=== PATIENT | female | born 1960 | race African-American/Black ===

== ENCOUNTER → 2016-05-13 | Outpatient (CLI) | payer BC ==
[~2016-05-13] MED LIST: AMLO5TAB4; ASPI-650; HYDR12.58 PO; PANT40TA3
[2016-05-13 12:05] LABS: ALBUMIN 4.6 g/dl (3.3-4.9)
[2016-05-13 12:08] LABS: BILIRUBIN,INDIRECT 0.5 mg/dl (0-1.1); BILIRUBIN,TOTAL 0.5 mg/dl (0.2-1.3); TOTAL PROTEIN 7.5 g/dl (6.1-8.1)
[2016-05-13 12:09] LABS: CHOL/HDL RATIO 2.1 RATIO
== END | disposition home or self-care (01) ==
LOC: LAB 10:16
PROVIDERS: ATTEND Internal Medicine Cardiovascular Disease
DX: E78.5 Hyperlipidemia, unspecified (principal)
CPT/HCPCS: 80061; 80076

== ENCOUNTER → 2016-05-13 | Outpatient (CLI) | END | disposition home or self-care (01) | DX: M15.0 Primary generalized (osteo)arthritis (principal); R76.0 Raised antibody titer; M79.7 Fibromyalgia ==

== ENCOUNTER → 2016-05-26 | Outpatient (CLI) | payer BC ==
--- NOTE | 2016-05-26 20:22 | RADRPT ---
Echocardiogram Report Patient Name: CARRIE PALOMINO Gender: Female Date: 1960 Study Date: 26-May-2016 Rn Interventional: [facility] Location: [facility] Ref. Physician: Santos MCKENZIE Quality: Good Procedures: Transthoracic echocardiogram with complete 2D, M-Mode, and doppler examination. Indications: Hypertension. 2D/M Mode Doppler Measurement Value Normal Ranges Measurement Value Normal Ranges LVIDd 2D 4.2 3.5 - 5.6 cm AV Peak [place]w 1.0 m/sec LVIDs 2D 2.8 2.1 - 4.1 cm AV Peak PG 4.0 mmHg FS 2D 33.2 % LVOT Peak Get[place]w 0.8 m/sec LVPWd 2D 1.0 0.6 - 1.1 cm LVOT Peak PG 2.0 mmHg IVSd 2D 0.8 0.6 - 1.1 cm MV E Peak Get[place]w 0.9 m/sec IVS/LVPW 2D 0.9 MV A Peak Get[place]w 0.5 m/sec AoR Diam 2D 2.1 2.0 - 3.7 cm MV E/A 1.8 LA/Ao 2D 1 0 - 1 MV Decel Time 232 msec EDV 2D 75.2 cm3 MV E/A 1.8 ESV 2D 22.4 cm3 LA Dimen 2D 2.8 2.3 - 4.0 cm Findings Left Ventricle: Normal left ventricular systolic function. Normal left ventricular cavity size. Left ventricular wall thickness upper limits of normal. Ejection fraction is visually estimated at 5560 %. Right Ventricle: Normal right ventricular size. Normal right ventricular systolic function. Left Atrium: The left atrium is normal in size. Right Atrium: The right atrium is normal in size. Mitral Valve: Mild mitral leaflet calcification. Mild mitral annular calcification. Mild mitral valve regurgitation. Aortic Valve: Trileaflet aortic valve. Trace aortic valve regurgitation. Tricuspid Valve: Tricuspid valve not well visualized. There is trace tricuspid regurgitation. Pulmonic Valve: Pulmonic valve not well visualized. There is trace pulmonic regurgitation. Pericardium: Normal pericardium with no significant pericardial effusion. Aorta: Normal aortic root. IVC: Dilated IVC with respiratory collapse consistent with elevated right atrial pressure. Conclusions 1.Normal left ventricular systolic function. Normal left ventricular cavity size. Left ventricular wall thickness upper limits of normal. Ejection fraction is visually estimated at 55-60 %. 2.Mild mitral leaflet calcification. Mild mitral annular calcification. Mild mitral valve regurgitation. 3.Trileaflet aortic valve. Trace aortic valve regurgitation. 4.Tricuspid valve not well visualized. There is trace tricuspid regurgitation. 5.Pulmonic valve not well visualized. There is trace pulmonic regurgitation. Electronically Signed By: Dutsy Salguero 26-May-2016 20:21:46 -0800 Patient Name: CARRIE PALOMINO Study Date: 26-May-2016 [id number]
== END | disposition home or self-care (01) ==
LOC: EKG 09:16
PROVIDERS: ATTEND Internal Medicine Cardiovascular Disease
DX: I10 Essential (primary) hypertension (principal); M06.9 Rheumatoid arthritis, unspecified; E78.5 Hyperlipidemia, unspecified
CPT/HCPCS: 93306

== ENCOUNTER → 2016-08-14 | Outpatient (CLI) | payer BC ==
[2016-08-14 09:36] LABS: ADD SCAN DIFF NO
[2016-08-14 09:48] LABS: BASOPHILS % 1.5 % (0.0-2.0); EOSINOPHILS # 0.1 10^3/ul (0.0-0.5); EOSINOPHILS % 3.4 % (0.0-7.0); HEMATOCRIT 40.5 % (37.0-47.0); HEMOGLOBIN 13.7 g/dl (12.0-16.0); LYMPHOCYTES # 0.8 10^3/ul (0.8-2.9); LYMPHOCYTES % 30.6 % (15.0-51.0); MEAN CORPUSCULAR HEMOGLOBIN 27.7 pg (29.0-33.0); MEAN CORPUSCULAR HGB CONC 33.8 g/dl (32.0-37.0); MEAN CORPUSCULAR VOLUME 81.8 fl (82.0-101.0); MEAN PLATELET VOLUME 10.8 fl (7.4-10.4); MONOCYTE # 0.3 10^3/ul (0.3-0.9); MONOCYTES % 10.2 % (0.0-11.0); NEUTROPHIL # 1.4 10^3/ul (1.6-7.5); NEUTROPHILS % 53.9 % (39.0-77.0); PLATELET COUNT 208 10^3/UL (140-415); RED BLOOD COUNT 4.95 10^6/ul (4.20-5.40); RED CELL DISTRIBUTION WIDTH 14.3 % (11.5-14.5); WHITE BLOOD COUNT 2.7 10^3/ul (4.8-10.8)
[2016-08-14 10:01] LABS: CREATININE 1.04 mg/dl (0.44-1.00)
[2016-08-15 01:16] LABS: PROTEIN, TOTAL 7.1 g/dL (6.1-8.1)
[2016-08-15 19:05] LABS: CYCLIC CITRULLINATED PEP IGG <16 UNITS
[2016-08-15 19:46] LABS: ALBUMIN 4.4 g/dL (3.8-4.8)
[2016-08-18 08:17] LABS: ANA SCREEN POSITIVE (NEGATIVE)
[2016-08-18 09:35] LABS: ANA TITER 1:40 titer
== END | disposition home or self-care (01) ==
LOC: LAB 09:07
PROVIDERS: ATTEND Internal Medicine Rheumatology
DX: M25.40 Effusion, unspecified joint (principal); M79.1 Myalgia
CPT/HCPCS: 82550; 82565; 84075; 84155; 84165; 84450; 84460; 84520; 85025; 85651; 86038; 86140; 86200

== ENCOUNTER → 2016-11-10 | Outpatient (CLI) | payer BC ==
[~2016-11-10] MED LIST changes: +AMLO2.5T2; +NO HOME MEDS
[2016-11-10 13:04] LABS: BASOPHIL # 0.1 10^3/ul (0.0-0.1); BASOPHILS % 1.6 % (0.0-2.0); EOSINOPHILS # 0.1 10^3/ul (0.0-0.5); EOSINOPHILS % 2.6 % (0.0-7.0); HEMATOCRIT 39.2 % (37.0-47.0); HEMOGLOBIN 13.5 g/dl (12.0-16.0); LYMPHOCYTES % 33.3 % (15.0-51.0); MEAN CORPUSCULAR HEMOGLOBIN 27.7 pg (29.0-33.0); MEAN CORPUSCULAR HGB CONC 34.4 g/dl (32.0-37.0); MEAN CORPUSCULAR VOLUME 80.3 fl (82.0-101.0); MEAN PLATELET VOLUME 10.7 fl (7.4-10.4); MONOCYTE # 0.4 10^3/ul (0.3-0.9); MONOCYTES % 12.1 % (0.0-11.0); NEUTROPHILS % 50.4 % (39.0-77.0); PLATELET COUNT 187 10^3/UL (140-415); RED BLOOD COUNT 4.88 10^6/ul (4.20-5.40); RED CELL DISTRIBUTION WIDTH 14.2 % (11.5-14.5); WHITE BLOOD COUNT 3.1 10^3/ul (4.8-10.8)
[2016-11-10 13:24] LABS: ALANINE AMINOTRANSFERASE 43 IU/L (13-69); ALKALINE PHOSPHATASE 71 IU/L (42-121); ASPARTATE AMINO TRANSFERASE 32 IU/L (15-46); BLOOD UREA NITROGEN 20 mg/dl (7-20); CARBON DIOXIDE 29 mmol/L (21-31); CHLORIDE 103 mmol/L (97-110); CREATINE KINASE 467 IU/L (23-200); CREATININE 1.09 mg/dl (0.44-1.00); LACTATE DEHYDROGENASE 628 IU/L (313-618); SODIUM 140 mmol/L (135-144); URIC ACID 5.2 mg/dl (3.1-7.9)
[2016-11-10 13:49] LABS: C-REACTIVE PROTEIN < 0.5 mg/dl (0.0-0.9)
[2016-11-10 14:41] LABS: THYROID STIMULATING HORMONE 0.682 MIU/L (0.465-4.680)
== END | disposition home or self-care (01) ==
LOC: LAB 11:52
PROVIDERS: ATTEND Internal Medicine Rheumatology
DX: M25.50 Pain in unspecified joint (principal); M25.40 Effusion, unspecified joint
CPT/HCPCS: 82085; 82374; 82435; 82550; 82565; 83615; 84075; 84132; 84295; 84443; 84450; 84460; 84520; 84560; 85025; 85651; 86140

== ENCOUNTER → 2017-02-04 | Outpatient (CLI) | payer BC ==
[~2017-02-04] MED LIST changes: -AMLO2.5T2; -NO HOME MEDS
[2017-02-04 10:30] LABS: BASOPHILS % 1.4 % (0.0-2.0); EOSINOPHILS # 0.1 10^3/ul (0.0-0.5); EOSINOPHILS % 2.1 % (0.0-7.0); HEMATOCRIT 38.8 % (37.0-47.0); HEMOGLOBIN 13.1 g/dl (12.0-16.0); LYMPHOCYTES # 0.9 10^3/ul (0.8-2.9); LYMPHOCYTES % 30.9 % (15.0-51.0); MEAN CORPUSCULAR HEMOGLOBIN 27.6 pg (29.0-33.0); MEAN CORPUSCULAR HGB CONC 33.8 g/dl (32.0-37.0); MEAN CORPUSCULAR VOLUME 81.7 fl (82.0-101.0); MEAN PLATELET VOLUME 10.6 fl (7.4-10.4); MONOCYTE # 0.3 10^3/ul (0.3-0.9); MONOCYTES % 10.3 % (0.0-11.0); NEUTROPHIL # 1.6 10^3/ul (1.6-7.5); NEUTROPHILS % 55.3 % (39.0-77.0); PLATELET COUNT 205 10^3/UL (140-415); RED BLOOD COUNT 4.75 10^6/ul (4.20-5.40); RED CELL DISTRIBUTION WIDTH 13.8 % (11.5-14.5); WHITE BLOOD COUNT 2.8 10^3/ul (4.8-10.8)
== END | disposition home or self-care (01) ==
LOC: LAB 09:29
PROVIDERS: ATTEND Internal Medicine Rheumatology
DX: M25.40 Effusion, unspecified joint (principal); M25.50 Pain in unspecified joint
CPT/HCPCS: 80197; 85025; 85651

== ENCOUNTER → 2017-02-04 | Outpatient (CLI) | payer BC ==
[2017-02-04 10:55] LABS: ALBUMIN 4.3 g/dl (3.3-4.9); ALBUMIN/GLOBULIN RATIO 1.38; BILIRUBIN,INDIRECT 0.3 mg/dl (0-1.1); BILIRUBIN,TOTAL 0.3 mg/dl (0.2-1.3); CALCIUM 9.7 mg/dl (8.4-10.2); CREATININE 1.11 mg/dl (0.44-1.00); POTASSIUM 4.3 mmol/L (3.5-5.1); TOTAL PROTEIN 7.4 g/dl (6.1-8.1)
--- NOTE | 2017-02-05 14:32 | RADRPT ---
PROCEDURE: US Abdomen and Retroperitoneum. CLINICAL INDICATION: Abdominal pain. TECHNIQUE: Multiple real-time longitudinal and transverse images were acquired of the patient's ab domen and retroperitoneum utilizing a curved array transducer. COMPARISON: No prior studies are available for comparison. FINDINGS: The liver is normal in size and normal in echogenicity. The liver has a normal smooth surface. Ther e is no focal hepatic lesion. Color Doppler and pulsed Doppler sonography demonstrate normal antegra de flow in the portal vein. The gallbladder is surgically absent. The bile ducts are normal with the common bile duct measuring 5.6 mm in diameter. The spleen is normal in size. There is no focal splenic lesion. The pancreas is partially seen and is unremarkable. There is no free fluid. The right kidney measures 12.0 x 5.3 x 6.9 cm and the left kidney measures 10.6 x 5.7 x 6.2 cm. There is no solid renal mass. There is a benign cyst in the mid right kidney measuring 1.7 cm. There is no hydronephrosis or calculus. The abdominal aorta is not dilated. The inferior vena cava is unremarkable. IMPRESSION: 1. Status post cholecystectomy. 2. Benign right renal cyst measuring 1.7 cm. 3. Otherwise unremarkable abdomen and retroperitoneum ultrasound. RPTAT: QQ .Carl Garcia MD, MD Date Time Electronically viewed and signed by .Carl Garcia MD, on 02/05/2017 14:32 .R/
== END | disposition home or self-care (01) ==
LOC: U/S 09:34
PROVIDERS: ATTEND Internal Medicine Gastroenterology
DX: R10.9 Unspecified abdominal pain (principal)
CPT/HCPCS: 76700; 80053

== ENCOUNTER 2017-02-26 05:40 | Day surgery (SDC) | payer BC ==
[~2017-02-26] VITALS: Ht 160 cm; Wt 82.5 kg
[2017-02-26 06:44] VITALS: Ht 160 cm; Wt 82.5 kg
[2017-02-26 07:06] VITALS: BP 128/90; PULSE 72; RESP 18
[2017-02-26] MEDS ORDERED: MIDAZOLAM 1 MG/ML 2 ML INJ ONE (07:40)
[2017-02-26] MEDS ORDERED: FENTAnyl 50 MCG/ML VIAL ONE (07:40)
--- NOTE | 2017-02-26 07:45 | OPPN ---
Date/Time of Note Date/Time of Note DATE: 02/26/17 TIME: 07:44 Operative Report Preoperative Diagnosis Gastroesophageal reflux disease and dysphagia Postoperative Diagnosis Hiatal hernia and gastroesophageal reflux disease Gastritis with erosions Operation/Procedure Performed Esophagogastroduodenoscopy and biopsy Surgeon see signature line nursing assistants teacher None Anesthesia: moderate sedation Estimated blood loss: none Transfusion Required none Specimen Gastric mucosal biopsy Grafts/Implants none Complications none AL VENCES MD Feb 26, 2017 07:45
[2017-02-26 08:08] VITALS: BP 132/78; PULSE 71; RESP 12
--- NOTE | 2017-02-26 12:33 | GILP ---
DATE OF PROCEDURE: NAME OF PROCEDURES: Esophagogastroduodenoscopy and biopsy. SURGEON: Marshall Lucero MD. PREOPERATIVE DIAGNOSES: 1. Chronic heartburn. 2. Dysphagia. POSTOPERATIVE DIAGNOSES: 1. Hiatal hernia. 2. Gastroesophageal reflux disease. 3. Gastritis with erosions. 4. Gastric mucosal biopsies were taken for Helicobacter pylori test. INDICATION FOR THE PROCEDURE: Ms. Ruba Zamora is a 56-year-old female patient who had telephone ad taker noe heartburn and dysphagia. The patient was scheduled for endoscopic examination for further evalu ation. The procedure and possible complications were well explained to the patient. The patient understood and consented to the procedure. DESCRIPTION OF PROCEDURE: Under the influence of fentanyl and Versed, the gastroscope was carefully introduced into the esophagus and under direct vision, it was advanced to the stomach and through t he pylorus into the duodenal bulb and descending duodenum. FINDINGS: ESOPHAGUS: The patient had hiatal hernia and gastroesophageal reflux disease. There was no neoplas m or stricture. STOMACH: The patient had gastritis with erosions. Gastric mucosal biopsies were taken for H. pylor i test. DUODENUM: Normal. The patient tolerated the procedure very well and there was no complication from the procedure. At the end of the procedure, she was awake with stable vital signs and she was discharged home to the [facility] of her family. IMPRESSION: Please see postoperative diagnoses. PLAN: 1. Nexium 40 mg p.o. q.a.m. 2. Await H. pylori test report. Dictated By: MARSHALL HUTTON/CONCHA Conf#: [id number] DID#: [id number]
--- NOTE | 2017-02-27 10:48 | CONS ---
DATE OF ADMISSION: 02/26/2017 DATE OF CONSULTATION: PREOPERATIVE GASTROINTESTINAL CONSULTATION HISTORY OF PRESENT ILLNESS: Ms. Ruba Díaz is a 56-year-old female patient who has been re ferred to me for further evaluation of chronic heartburn with dysphagia. No past history of esophag eal stricture. She has been taking nonsteroidal anti-inflammatory agents for arthritis. She also c omplains of pain on the right side of the abdomen. She is status post a cholecystectomy. She does not have any fever, chills or jaundice. No history of liver disease. The patient denies any change in the bowel habit or rectal bleeding. She had screening colonoscopy 4 years ago and no colon neop lasm was identified. She is hypertensive. Not a diabetic. No heart disease or lung problem. No k idney disease. She has hyperlipidemia. She has rheumatoid arthritis. She is status post cholecyst ectomy and hysterectomy. Nonsmoker. No alcohol abuse. The patient's father had gastric cancer. ALLERGIES: SHE IS ALLERGIC TO: 1. DEMEROL. 2. CODEINE. 3. ERYTHROMYCIN. 4. MACROBID. 5. BETADINE. PHYSICAL EXAMINATION: GENERAL: She is 5 feet 3 inches tall and weighs 180 pounds. HEART: Normal heart sounds. LUNGS: Clear. ABDOMEN: Soft, no masses. No focal tenderness. Normal bowel sounds. NEUROLOGIC: Normal exam. MEDICATIONS: 1. Amlodipine. 2. Hydrochlorothiazide. 3. Atorvastatin. 4. Hydroxychloroquine. 5. Celebrex. 6. Aspirin 81 mg. IMPRESSION: 1. Gastroesophageal reflux disease with dysphagia. 2. The patient had a screening colonoscopy 4 years ago and no colon neoplasm was identified. 3. Right-sided abdominal pain. 4. Status post cholecystectomy. 5. Hypertension. 6. Hyperlipidemia. 7. Rheumatoid arthritis. 8. Status post hysterectomy. 9. The patient's father had stomach cancer. 10. HISTORY OF ALLERGY TO DEMEROL, CODEINE, ERYTHROMYCIN, MACROBID AND BETADINE. PLAN: 1. Endoscopic examination for further evaluation of dysphagia and gastroesophageal reflux disease. 2. CBC, CMP and abdominal ultrasound for further evaluation of abdominal pain. The procedure and possible complications were well explained to the patient. She understands and co nsents to the procedure. I thank you once again. With warmest personal regards, Dictated By: AL HUTTON/CONCHA Conf#: [id number] [facility]#: [id number]
== END 2017-02-26 10:23 | disposition home or self-care (01) ==
LOC: GIL 05:40
PROVIDERS: ATTEND Internal Medicine Gastroenterology
DX: K44.9 Diaphragmatic hernia without obstruction or gangrene (principal); K21.9 Gastro-esophageal reflux disease without esophagitis; K29.70 Gastritis, unspecified, without bleeding; I10 Essential (primary) hypertension; E78.5 Hyperlipidemia, unspecified; M06.9 Rheumatoid arthritis, unspecified
CPT/HCPCS: 43239; J2250; J3010

== ENCOUNTER → 2017-03-26 | Outpatient (CLI) | END | disposition home or self-care (01) ==

== ENCOUNTER → 2017-04-21 | Outpatient (CLI) | END | disposition home or self-care (01) ==

== ENCOUNTER → 2017-06-08 | Outpatient (CLI) | END | disposition home or self-care (01) ==

== ENCOUNTER → 2017-06-08 | Outpatient (CLI) | END | disposition home or self-care (01) ==

== ENCOUNTER → 2017-10-11 | Outpatient (CLI) | END | disposition home or self-care (01) ==

== ENCOUNTER → 2017-10-11 | Outpatient (CLI) | END | disposition home or self-care (01) ==

== ENCOUNTER → 2017-12-20 | Outpatient (CLI) | END | disposition home or self-care (01) ==

== ENCOUNTER → 2018-07-12 | Outpatient (CLI) | payer BC ==
[~2018-07-12] MED LIST changes: -PANT40TA3
== END | disposition home or self-care (01) ==
LOC: LAB 09:36
PROVIDERS: ATTEND Internal Medicine
DX: E78.5 Hyperlipidemia, unspecified (principal); E03.9 Hypothyroidism, unspecified; R73.03 Prediabetes
CPT/HCPCS: 80053; 80061; 83036; 84436; 84443; 85025

== ENCOUNTER → 2018-07-12 | Outpatient (CLI) | payer BC | END | disposition home or self-care (01) | LOC: LAB 09:43 | PROVIDERS: ATTEND Internal Medicine Rheumatology | DX: M25.40 Effusion, unspecified joint (principal); M79.10 Myalgia, unspecified site | CPT/HCPCS: 82607; 82746; 85651 ==

== ENCOUNTER 2018-07-28 11:52 | Emergency (ER) | payer BC ==
[~2018-07-28] VITALS: Ht 170.2 cm; Wt 72.8 kg
[2018-07-28 12:00] VITALS: Ht 170.2 cm; Wt 72.8 kg
--- NOTE | 2018-07-28 13:02 | ERD ---
ER Documentation Chief Complaint Chief Complaint Pt with intermittent CP that radiates to the R shoulder HPI This is a 58-year-old female with past medical history of hypertension and fibromyalgia. The patient indicates that yesterday evening roughly 12 hours prior to arrival she developed pain in the right side of her jaw that radiated to the right side of her chest. She stated she felt cold and nauseous. She stated the pain progressively worsened and became a pleuritic chest pain that now radiated to the left side of her chest. There is no radiation to the left arm. The pain also radiated to the back. She has had sick contacts that she works at [employer]. She has no family history of coronary ar stephanie disease in first-degree relatives. She does not smoke tobacco. She takes aspirin on a daily basis. Her primary care physician is Dr. Gannon. She has seen the credit verification clerk Dr. Coulter in the past. ROS All systems reviewed and are negative except as per history of present illness. Medications Home Meds Active Scripts Amoxicillin/Potassium Clav (Amox-Clav 875-125 mg Tablet) 875-125 mg Tab, 1 TAB PO BID for 10 Days, #20 TAB Prov:VISH OLSEN MD 07/28/18 Reported Medications Hydrochlorothiazide* (Hydrochlorothiazide*) 12.5 Mg Tablet, 12.5 MG PO DAILY, TAB 01/09/14 Aspirin (Aspirin) 81 Mg Tablet 06/17/12 Amlodipine Besylate* (Norvasc*) 5 Mg Tablet 06/17/12 Allergies Allergies: Coded Allergies: codeine (Verified Allergy, Mild, 02/26/17) erythromycin base (Verified Allergy, Mild, 02/26/17) meperidine (Verified Allergy, Mild, 02/26/17) povidone-iodine (Verified Allergy, Mild, 02/26/17) Nitrofurantoin Macrocrystal (Verified Allergy, Unknown, 02/26/17) Soap (Verified Allergy, Unknown, 02/26/17) meperidine HCl (Verified Allergy, Unknown, 02/26/17) nitrofurantoin (Verified Allergy, Unknown, 02/26/17) PMhx/Soc History of Surgery: Yes (lamin, lap choley, r knee opa) Anesthesia Reaction: Yes (n/v) Hx Neurological Disorder: No Hx Respiratory Disorders: No Hx Cardiac Disorders: Yes (htn, high chol) Hx Psychiatric Problems: No Hx Miscellaneous Medical Probl: No Hx Alcohol Use: Yes (rarely) Hx Substance Use: No Hx Tobacco Use: Yes (quit 1988) Smoking Status: Former smoker Physical Exam Vitals Vital Signs Date Temp Pulse Resp B/P (MAP) Pulse Ox O2 O2 Flow FiO2 Time Delivery Rate 07/28/18 80 15 120/88 99 Room Air 13:58 (99) 07/28/18 98.0 104 20 151/83 99 12:00 (105) Physical Exam Constitutional:Well-developed. Well-nourished. HEENT:Normocephalic. Atraumatic.Pupils were equal round reactive to light. Moist mucous membranes.No tonsillar exudates. Neck: No nuchal rigidity. No lymphadenopathy. No posterior cervical spine tenderness or step-offs. Respiratory: Not using accessory muscles of respiration.Lungs were clear to auscultation bilaterally. No rhonchi. No rales. No wheezing. Cardiovascular: Regular rate regular rhythm.No murmurs. No rubs were ap preciated.S1, S2 normal. Distal pulses are palpable 2+ bilaterally. GI: Abdomen was soft. Nontender. Non Distended. No pulsatile abdominal masses or bruits. No rebound. No guarding. Bowel sounds were present and normal. Muscle skeletal: Full range of motion of both the upper and lower extremities b ilaterally.Normal muscle tone.No assymetrical calf tenderness or swelling. Skin: No petechia, no purpura. No lesions on the palms or the soles of the feet. No maculopapular rash. NEURO: Patient was alert, awake, orientated x3.No facial droop. Gait observed and normal with no ataxia.Speech had regular rate and rhythm. No focal neurological deficits. Result Diagram: 07/28/18 1234 07/28/18 1234 Results 24 hrs Laboratory Tests Test 07/28/18 12:34 07/28/18 15:30 White Blood Count 5.7 10^3/ul Red Blood Count 4.77 10^6/ul Hemoglobin 13.0 g/dl Hematocrit 38.3 % Mean Corpuscular Volume 80.3 fl Mean Corpuscular Hemoglobin 27.3 pg Mean Corpuscular Hemoglobin Concent 33.9 g/dl Red Cell Distribution Width 14.4 % Platelet Count 218 10^3/UL Mean Platelet Volume 10.5 fl Immature Granulocytes % 0.200 % Neutrophils % 69.1 % Lymphocytes % 17.8 % Monocytes % 11.1 % Eosinophils % 1.1 % Basophils % 0.7 % Nucleated Red Blood Cells % 0.0 /100WBC Immature Granulocytes # 0.010 10^3/ul Neutrophils # 3.9 10^3/ul Lymphocytes # 1.0 10^3/ul Monocytes # 0.6 10^3/ul Eosinophils # 0.1 10^3/ul Basophils # 0.0 10^3/ul Nucleated Red Blood Cells # 0.0 10^3/ul Prothrombin Time 14.0 Sec Prothrombin Time Ratio 1.1 INR International Normalized Ratio 1.07 Activated Partial Thromboplast Time 25.9 Sec Sodium Level 143 mmol/L Potassium Level 4.1 mmol/L Chloride Level 105 mmol/L Carbon Dioxide Level 31 mmol/L Anion Gap 7 Blood Urea Nitrogen 14 mg/dl Creatinine 1.01 mg/dl Est Glomerular Filtrat Rate mL/min > 60 mL/min Glucose Level 90 mg/dl Calcium Level 10.4 mg/dl Total Bilirubin 0.7 mg/dl Direct Bilirubin 0.00 mg/dl Indirect Bilirubin 0.7 mg/dl Aspartate Amino Transf (AST/SGOT) 23 IU/L Alanine Aminotransferase (ALT/SGPT) 30 IU/L Alkaline Phosphatase 62 IU/L Creatine Kinase 188 IU/L Creatine Kinase Index 0.8 Creatinine Kinase MB (Mass) 1.59 ng/ml Troponin I < 0.012 ng/ml B-Type Natriuretic Peptide 80 PG/ML Total Protein 6.9 g/dl Albumin 4.1 g/dl Globulin 2.80 g/dl Albumin/Globulin Ratio 1.46 Urine Color STRAW Urine Clarity CLEAR Urine pH 6.0 Urine Specific [place] 1.041 Urine Ketones NEGATIVE mg/dL Urine Nitrite NEGATIVE mg/dL Urine Bilirubin NEGATIVE mg/dL Urine Urobilinogen NEGATIVE mg/dL Urine Leukocyte Esterase NEGATIVE Yoli/ul Urine Hemoglobin NEGATIVE mg/dL Urine Glucose NEGATIVE mg/dL Urine Total Protein NEGATIVE mg/dl Current Medications Medications Dose Sig/Tucker Start Time Status Last (Trade) Ordered Route PRN Stop Time Admin Dose Reason Admin Cefepime HCl 50 ml @ ONCE STAT 07/28/18 DC 07/28/18 100 mls/hr IVPB 14:54 07/28/18 15:27 15:23 Vancomycin 250 ml @ ONCE STAT 07/28/18 DC 07/28/18 HCl 125 mls/hr IVPB 14:54 07/28/18 16:09 16:53 Sodium 100 ml @ ud STK-MED 07/28/18 DC Chloride ONCE .ROUTE 13:30 07/28/18 15:27 Iohexol 100 ml @ ud STK-MED 07/28/18 DC ONCE .ROUTE 13:30 07/28/18 15:27 Ketorolac 30 mg ONCE STAT 07/28/18 DC 07/28/18 Tromethamine IV 16:09 07/28/18 16:13 (Toradol) 16:10 Procedures/MDM The patient presented to the emergency department complaining of chest pain. My clinical evaluation and workup was to distinguish minor causes of chest pain from acute life threatening cardiopulmonary causes such as myocardial infarction, pulmonary embolism, aortic dissection, esophageal rupture, cardiac tamponade, The patient was placed on a monitor worker, continuous pulse oximetry and IV access established by nursing staff. The patient had already taken aspirin today therefore none was given in the emergency department. She was not given nitroglycerin as during evaluation the patient was now experiencing chest pressure at this time. 12 Lead EKG tracing ordered and reviewed by myself showed: Normal sinus rhythm of 81 bpm and no arrhythmia. CO interval normal. QRS duration normal. No ST segment elevation No ST segment depression. No changes consistent with acute ischemia. The patient was complaining of chest pain that was rating to the back with mild abdominal pain rating to the back as well. Therefore did feel is necessary to obtain a CT scan of the patient's chest and abdomen and there is no evidence of aortic dissection or pulmonary embolism. However the CT of the chest indicated the followin. No evidence of large or central pulmonary emboli. 2. No aortic aneurysm or dissection. 3. Large 4.8 x 4.2 cm mass-like area of consolidation in the right lower lobe. This may be infectious or neoplastic in etiology. Recommend short interval follow-up and/or biopsy for further evaluation. 4. Otherwise no suspicious lung nodules or masses seen. 5. No pathologic adenopathy At this time I informed the patient of the results. Indicates the patient could not rule out a neoplastic process given that she had right-sided neck pain chest pain and right-sided back pain. However in addition I did feel is necessary to treat the mass as a possible pneumonia. She was given IV vancomycin and cefepime. I have spoken with her primary care physician Dr. Garcia who is taking call for Dr. Gannon and he is out of town. He will arrange for immediate follow-up with the book trimmer Dr. Chau to arrange for a biopsy. Departure Diagnosis: Primary Impression: Pulmonary mass Condition: VISH Villatoro MD July 28, 2018 13:02
[2018-07-28] MEDS ORDERED: IOHEXOL 100 ML ONE (13:30)
[2018-07-28] MEDS ORDERED: SOD CHLORIDE 0.9% 100 ML ONE (13:30)
[2018-07-28] MEDS ORDERED: VANCOMYCIN 1 GM (PMX) 250 ML IVPB STA (14:54)
[2018-07-28] MEDS ORDERED: CEFEPIME 1GM/50 ML (PMX) 50 ML IVPB STA (14:54)
[2018-07-28] MEDS ORDERED: KETOROLAC 30 MG INJ IV STA (16:09)
[2018-07-28] MEDS ORDERED: AMOX1TAB10 PO (16:58)
[2018-07-28 18:53] VITALS: BP 128/73; PULSE 80; RESP 14
== END 2018-07-28 18:54 | disposition home or self-care (01) ==
LOC: E/R 11:52
DX: R91.8 Other nonspecific abnormal finding of lung field (principal); I10 Essential (primary) hypertension; Z87.891 Personal history of nicotine dependence
CPT/HCPCS: 71275; 74177; 80053; 81003; 82550; 82553; 83880; 84484; 85025; 85610; 85730; 87040; 87086; 93005; 96374; 96375; 99285; J0692; J1885; J3370; Q9967

== ENCOUNTER → 2018-08-11 | Outpatient (CLI) | payer BC ==
[~2018-08-11] MED LIST changes: +ALBUTEROL 0.5% (NEB) 2.5 MG/0.5 ML AMP ONE; +AMLO5TAB4 PO; +AMOX1TAB10 PO; +ATOR10TA65 PO; +DULO30CA45 PO; +HYDR200T5 PO; +LEFL20TA18 PO; +PANT40TA3 PO
== END | disposition home or self-care (01) ==
LOC: PUL 07:04
PROVIDERS: ATTEND Internal Medicine Pulmonary Disease
DX: R91.8 Other nonspecific abnormal finding of lung field (principal)
CPT/HCPCS: 94060; 94664; 94726; 94729

== ENCOUNTER 2018-08-23 10:18 | Inpatient (IN) | payer BC ==
[2018-08-23] VITALS (16 sets, daily range): BP systolic 103–141; BP diastolic 68–90; PULSE 77–100; RESP 10–26; Ht 160 cm; Wt 73.6 kg
[~2018-08-23] VITALS: Ht 160 cm; Wt 73.6 kg
[~2018-08-23 10:18] MED LIST changes: -ALBUTEROL 0.5% (NEB) 2.5 MG/0.5 ML AMP ONE; -AMLO5TAB4 PO; -ATOR10TA65 PO; -DULO30CA45 PO; -HYDR200T5 PO; -LEFL20TA18 PO; -PANT40TA3 PO
[2018-08-23] MEDS ORDERED: HYDR12.58 PO (10:57)
[2018-08-23] MEDS ORDERED: AMLO5TAB4 PO (10:57)
[2018-08-23] MEDS ORDERED: HYDR200T5 PO (10:58)
[2018-08-23] MEDS ORDERED: DULO30CA45 PO (10:58)
[2018-08-23] MEDS ORDERED: ATOR10TA65 PO (10:58)
[2018-08-23] MEDS ORDERED: PANT40TA3 PO (10:59)
[2018-08-23] MEDS ORDERED: LEFL20TA18 PO (10:59)
[2018-08-23] MEDS ORDERED: SEVOFLURANE 15 MIN ONE (13:00)
--- NOTE | 2018-08-23 13:11 | PREAC ---
Date/Time of Note Date/Time of Note DATE: 08/23/18 TIME: 13:08 Anesthesia Eval and Record Evaluation Time Pre-Procedure Interview DATE: 08/23/18 TIME: 13:08 Age 58 Sex female NPO: 8 hrs Preoperative diagnosis Rt lower lung mass Planned procedure Rt Thoracoscopy and Rt lower lobectomy Past Medical History Past Medical History: Includes Cardio: HTN, Dyslipidemia GI: Morbid obesity Surgery & Anesthesia Issues No known issue Meds Anticoagulation: No Beta Francisco Javier within 24 hr: No Reason Beta Francisco Javier not given: Pt. not on B-Francisco Javier Reported Medications Pantoprazole* (Protonix*) 40 Mg Tablet.dr, 40 MG PO DAILY, TAB 08/23/18 Leflunomide* (Leflunomide*) 20 Mg Tablet, 20 MG PO DAILY, #30 TAB 08/23/18 Duloxetine Hcl* (Cymbalta*) 30 Mg Capsule.dr, 30 MG PO DAILY, CAP 08/23/18 Hydroxychloroquine Sulfate* (Plaquenil*) 200 Mg Tab, 200 MG PO DAILY, TAB 08/23/18 Atorvastatin Calcium (Atorvastatin Calcium) 10 Mg Tablet, 10 MG PO QHS, #30 TAB 08/23/18 Hydrochlorothiazide* (Hydrochlorothiazide*) 12.5 Mg Tablet, 12.5 MG PO DAILY, #30 TAB 08/23/18 Amlodipine Besylate* (Norvasc*) 5 Mg Tablet, 5 MG PO DAILY, TAB 08/23/18 Discontinued Reported Medications Hydrochlorothiazide* (Hydrochlorothiazide*) 12.5 Mg Tablet, 12.5 MG PO DAILY, TAB 01/09/14 Aspirin (Aspirin) 81 Mg Tablet 06/17/12 Amlodipine Besylate* (Norvasc*) 5 Mg Tablet 06/17/12 Discontinued Scripts Amoxicillin/Potassium Clav (Amox-Clav 875-125 mg Tablet) 875-125 mg Tab, 1 TAB PO BID for 10 Days, #20 TAB Prov:VISH OLSEN MD 07/28/18 Meds reviewed: Yes Allergies Coded Allergies: codeine (Verified Allergy, Mild, 08/23/18) erythromycin base (Verified Allergy, Mild, 08/23/18) meperidine (Verified Allergy, Mild, 08/23/18) povidone-iodine (Verified Allergy, Mild, 08/23/18) Nitrofurantoin Macrocrystal (Verified Allergy, Unknown, 08/23/18) Soap (Verified Allergy, Unknown, 08/23/18) meperidine HCl (Verified Allergy, Unknown, 08/23/18) nitrofurantoin (Verified Allergy, Unknown, 08/23/18) Allergies Reviewed: Yes Labs/Studies Labs Reviewed: Reviewed by anesthesiologist test: N/A Studies: ECG Pre-procedure Exam Last vitals Vital Signs Date Temp Pulse Resp B/P (MAP) Pulse Ox O2 O2 Flow FiO2 Time Delivery Rate 08/23/18 97.3 77 16 128/77 98 Room Air 10:30 (94) Airway: Adequate mouth opening, Adequate thyromental dist Mallampati: Mallampati II Teeth: Normal Lung: Normal Heart: Normal ASA Physical Status ASA physical status: 3 Emergency: None Planned Anesthetic General/MAC: ETT, A Line, One-Lung ventilation Pre-operative Attestations Prior to commencing anesthesia and surgery, the patient was re-evaluated, there was verification of: *The patient's identity *The results of appropriate recent lab work and preoperative vital signs *The above evaluation not changing prior to induction *Anesthetic plan, risk benefits, alternative and complications discussed with patient/family; questions answered; patient/family understands, accepts and wishes to proceed. YARELIS MAHONEY MD Aug 23, 2018 13:11
[2018-08-23] MEDS ORDERED: MIDAZOLAM 1 MG/ML 2 ML INJ ONE (13:16)
--- NOTE | 2018-08-23 13:21 | HPN ---
Date/Time of Note Date/Time of Note DATE: 08/23/18 TIME: 13:21 Interval H&P Admission Note Pt. seen H&P reviewed: No system changes BRADFORD LORA MD Aug 23, 2018 13:21
[2018-08-23] MEDS ORDERED: BUPIVACAINE 0.5%/EPI (SDV) 30 ML INJ ONE (13:46)
[2018-08-23] MEDS ORDERED: ROCURONIUM 50 MG INJ ONE (15:33)
[2018-08-23] MEDS ORDERED: LIDOCAINE 2% (SDV) 5 ML INJ ONE (15:35)
[2018-08-23] MEDS ORDERED: CEFAZOLIN 1 GM INJ ONE ×2 (15:35→15:36)
[2018-08-23] MEDS ORDERED: PROPOFOL 20 ML ONE (15:35)
[2018-08-23] MEDS ORDERED: METOCLOPRAMIDE 10 MG INJ ONE (15:36)
[2018-08-23] MEDS ORDERED: ONDANSETRON 4 MG INJ ONE ×2 (15:36→16:13)
[2018-08-23] MEDS ORDERED: DEXAMETHASONE 4 MG/ML 5 ML INJ ONE (15:37)
--- NOTE | 2018-08-23 15:53 | SIPON ---
Date/Time of Note Date/Time of Note DATE: 08/23/18 TIME: 15:51 Operative Report Preoperative Diagnosis right lung mass Postoperative Diagnosis adenocarcinoma Operation/Procedure Performed Right VATs RLL lobectomy and thoracic lymphadenectomy, cryoablation of intercostal nerves and flex bronch and intercostal nerve block with 0.5% marcaine Surgeon see signature line printer assistant Niurka VOSS Anesthesia: general Estimated blood loss: 50 - 100 ml's Transfusion Required none Specimen RLL and mediastinal lymph nodes Grafts/Implants none Complications none BRADFORD LORA MD Aug 23, 2018 15:53
[2018-08-23] MEDS ORDERED: OXYCODONE/ACETAMINOPHEN (5/325) TAB PO PRN (16:00)
[2018-08-23] MEDS ORDERED: DIPHENHYDRAMINE 50 MG INJ IV PRN ×2 (16:00→16:30)
[2018-08-23] MEDS ORDERED: NEOSTIGMINE 3 MG/3 ML SYRINGE ONE (16:03)
[2018-08-23] MEDS ORDERED: GLYCOPYRROLATE 0.4 MG INJ ONE (16:03)
[2018-08-23] MEDS ORDERED: FENTAnyl 50 MCG/ML VIAL ONE (16:11)
--- NOTE | 2018-08-23 16:12 | PAC ---
Date/Time of Note Date/Time of Note DATE: 08/23/18 TIME: 16:12 Post-Anesthesia Notes Post-Anesthesia Note Last documented vital signs Vital Signs Date Temp Pulse Resp B/P (MAP) Pulse Ox O2 O2 Flow FiO2 Time Delivery Rate 08/23/18 97.3 77 16 128/77 98 Room Air 10:30 (94) Activity: WNL Respiratory function: WNL Cardiovascular function: WNL Mental status: Baseline Pain reasonably controlled: Yes Hydration appropriate: Yes Nausea/Vomiting absent: Yes Comments BP:136/67, P:78, Spo2:100%, T:98,8 YARELIS MAHONEY MD Aug 23, 2018 16:12
[2018-08-23] MEDS ORDERED: hydrALAzine 20 MG INJ IV PRN (16:30)
[2018-08-23] MEDS ORDERED: LABETALOL HCL 20MG INJ IV PRN (16:30)
[2018-08-23] MEDS ORDERED: METOCLOPRAMIDE 10 MG INJ IV PRN (16:30)
[2018-08-23] MEDS ORDERED: ONDANSETRON 4 MG INJ IV PRN (16:30)
[2018-08-23] MEDS ORDERED: LORAZEPAM 2 MG INJ IV PRN (16:30)
[2018-08-23] MEDS ORDERED: MIDAZOLAM 1 MG/ML 2 ML INJ IV PRN (16:30)
[2018-08-23] MEDS ORDERED: FENTAnyl 50 MCG/ML VIAL IV PRN ×2 (16:30)
[2018-08-23] MEDS: D5W-0.45 NACL + KCL 20 MEQ 1,000 ML IV SCH (16:58)
[2018-08-23] MEDS: ONDANSETRON 4 MG INJ IV PRN (16:59)
[2018-08-23] MEDS: KETOROLAC 30 MG INJ IV PRN (17:26)
[2018-08-23] MEDS: CEFAZOLIN 2 GM/50 ML (PMX) 50 ML IVPB SCH (17:43)
[2018-08-23] MEDS: HYDROmorphONE 0.5 MG/0.5 ML SYG IV PRN ×2 (19:43→23:18)
--- NOTE | 2018-08-23 19:59 | OPR ---
DATE OF OPERATION: 08/23/2018 PREOPERATIVE DIAGNOSIS: Right lung mass. POSTOPERATIVE DIAGNOSIS: Right lung adenocarcinoma. PROCEDURE: Right thoracoscopy, right lower lobe wedge resection followed by lower lobe lobectomy, th oracic lymphadenectomy, cryoablation of intercostal nerves 4 through 7 and intercostal nerve block of 4 through 7 with 0.5% Marcaine and flexible bronchoscopy. SURGEON: Bradford Lora MD SHERIFF SERGEANT: BIPIN Pablo ANESTHESIOLOGIST: Chicho Cobos MD ESTIMATED BLOOD LOSS: 50 mL. TYPE OF ANESTHESIA: Double lumen general endotracheal. COMPLICATIONS: None. FINDINGS: No endobronchial lesions were identified. Right lower lobe mass was sent to pathology and came back as adenocarcinoma. Therefore, a lobectomy was completed and thoracic lymphadenectomy was completed. Lymph nodes are pending. INDICATION: The patient is a 58-year-old female who was having some pleuritic pain, found to have a right lung mass. She underwent a PET scan which showed no uptake in the mediastinum, just the mass. She was referred for resection. Risks, benefits, and alternatives were explained to the patient who understood and consented. DESCRIPTION OF PROCEDURE: The patient was brought to the operating room, was placed in supine positi on. She was induced and underwent double lumen general endotracheal intubation without complications . Bronchoscope was introduced down the bronchial and tracheal side of the double lumen tube. There were no endobronchial lesions identified. The patient was then turned right side up. She was preppe d and draped in the usual sterile fashion. Two trocar incisions were made in the 8th interspace and then another one was made in the fifth interspace. Camera was introduced. We identified the right l ower lobe lung mass. We wedged it out, came back positive for adenocarcinoma. We then did a cryoabl ation of intercostal nerves 4 through 7 and intercostal nerve block. We then proceeded through a lob ectomy. We freed up the inferior pulmonary ligament and encircled the right inferior pulmonary vein and we ligated it using an endovascular stapler. We then identified the trunk to the right lower lob e and ligated the pulmonary artery using endovascular stapler. We then divided the fissure between t he middle and lower lobe using Endo-MELISSA stapler and then we divided the bronchus to the lower lobe us ing an Endo-MELISSA stapler. We checked for any leaks. There were no leaks. We then did a thoracic lym phadenectomy, removed level A, level 7, level 4 lymph nodes. Once this was completed, hemostasis was achieved. We placed a 32-Pakistani chest tube, secured it using silk suture. We closed the utility in cision using 0 Vicryl followed by 4-0 Monocryl to close the skin. Trocar incisions were closed using 2-0 Vicryl for the deep layer and 4-0 Monocryl for the skin. Dressings were applied. The patient w as extubated and taken to recovery room in stable condition. Dictated By: BRADFORD LORA MD AA/CONCHA Conf#: [id number] DID#: [id number] CC: BRADFORD LORA MD; JABARI RIOS MD;*End*
[2018-08-23] MEDS: FAMOTIDINE 20 MG TAB PO SCH (21:00)
[2018-08-24] VITALS (24 sets, daily range): BP systolic 99–131; BP diastolic 60–89; PULSE 83–105; RESP 9–23
[2018-08-24] MEDS: CEFAZOLIN 2 GM/50 ML (PMX) 50 ML IVPB SCH ×2 (01:04→10:39)
[2018-08-24] MEDS: HYDROmorphONE 0.5 MG/0.5 ML SYG IV PRN ×6 (03:45→22:13)
[2018-08-24] MEDS: ENOXAPARIN 40 MG/0.4 ML SYG SC SCH (06:12)
--- NOTE | 2018-08-24 06:55 | PN ---
Date/Time of Note Date/Time of Note DATE: 08/24/18 TIME: 06:47 Assessment/Plan Lines/Catheters IV Catheter Type (from Nrsg): Peripheral IV Ling in Place (from Nrsg): No Assessment/Plan Assessment/Plan s/p right lower lobectomy pain issues urinary retention d/c art line mobilize advance diet cxr in am Subjective 24 Hr Interval Summary Constitutional: other (pain) Feeding: clear Pain Control: moderate Exam/Review of Systems Vital Signs Vitals Vital Signs Date Temp Pulse Resp B/P (MAP) Pulse Ox O2 O2 Flow FiO2 Time Delivery Rate 08/24/18 87 15 125/62 100 Room Air 06:00 (83) 08/24/18 2.0 05:00 08/24/18 98.6 04:00 Intake and Output 08/23/18 08/23/18 08/24/18 1414:59 22:59 06:59 IntakeIntake Total 1335 ml 530 ml OutputOutput Total 1320 ml 550 ml BalanceBalance 15 ml -20 ml Exam Constitutional: alert, oriented Psych: nl mood/affect Head: normocephalic Eyes: nl sclera ENMT: mucosa pink and moist Neck: supple Respiratory: other (room air is to 750 cc chest tube 600 cc total) Cardiovascular: regular rate and rhythm Musculoskeletal: nl extremities to inspection Neurological: LABOR CONCILIATOR II-XII intact, nl mental status Results Result Diagram: 08/24/1839908/24/18399 PLACIDO MORALES MD Aug 24, 2018 06:55
[2018-08-24] MEDS: FAMOTIDINE 20 MG TAB PO SCH ×2 (08:41→20:48)
[2018-08-24] MEDS: ONDANSETRON 4 MG INJ IV PRN ×2 (10:15→19:34)
[2018-08-24] MEDS: D5W-0.45 NACL + KCL 20 MEQ 1,000 ML IV SCH (10:39)
--- NOTE | 2018-08-24 14:24 | CONS ---
DATE OF ADMISSION: 08/23/2018 DATE OF CONSULTATION: 08/24/2018 TYPE OF CONSULTATION: Pulmonary. REASON FOR CONSULTATION: Lung mass. Thank you, Dr. Hyatt, for this consultation. HISTORY OF PRESENT ILLNESS: This is a 58-year-old lady well known to me, presented with recent findi ng of right lower lobe mass, underwent treatment with antibiotics with no resolution. She had a PET- CT scan which was PET positive; however, no significant lymph node involvement. She was subsequently seen by thoracic surgery and underwent lobectomy yesterday. Surgery itself was unremarkable. The p atient tolerated the procedure well without complication. Postoperatively, she continues ICU managem ent with no vasopressor, chest tube in place; currently hemodynamically stable. PAST MEDICAL HISTORY: As above. MEDICATIONS: Per chart. MEDICATIONS: Extensive. Please see chart. SOCIAL HISTORY: She is a nonsmoker. No alcohol, no history of drug use. FAMILY HISTORY: Noncontributory. SYSTEMS REVIEW: A 12-point review of systems was negative other than that mentioned above. PHYSICAL EXAMINATION: GENERAL: Well-nourished, well-developed lady, comfortable at rest, talking in full and complete sent ences. VITAL SIGNS: Currently afebrile, pulse is 99, blood pressure 107/77, O2 saturation 96% on room air. NECK: Supple. No JVD or lymphadenopathy. CARDIAC: S1, S2. No added sounds or murmurs. CHEST: Diminished air entry bilaterally, but no rales or wheezes. ABDOMEN: Soft, nontender. No guarding or rebound. EXTREMITIES: No cyanosis, clubbing, edema. NEUROLOGICAL: Grossly intact. No focal deficits. PATHOLOGY: Findings were consistent with adenocarcinoma. LABORATORY DATA: This morning, white count 10, hemoglobin 11.0, platelets of 188. Chemistry within normal limits. INR was 0.93. DIAGNOSTIC STUDIES: Preoperative chest x-ray shows no pneumothorax, chest tube in place. IMPRESSION: Status post right lower lobectomy for adenocarcinoma with lymph node sampling. PLAN: 1. Continue chest tube in place. Anticipate discontinuing chest tube once drainage is less than 100 mL over 24 hours. 2. Continue incentive spirometry. 3. Adequate pain control. 4. Encourage out of bed ambulation. 5. DVT and GI prophylaxis. Dictated By: JABARI WILBURN/CONCHA Conf#: [id number] [facility]#: [id number] CC: BRADFORD LORA MD; KRISHAN HYATT MD;*[facility]*
--- NOTE | 2018-08-24 15:01 | PN ---
DATE: 08/24/2018 SUBJECTIVE: The patient has mild pain, right chest, some cough, some nausea, was able to get out of bed and ambulate with PT. VITAL SIGNS: Temperature 98.6, blood pressure 124/62, O2 sats 100% on 2 liters nasal cannula. HEENT: Mild pallor without cyanosis. CHEST: Decreased breath sounds at bases. HEART: S1, S2 heard with no definite gallops. Chest tube draining well. EXTREMITIES: No edema. Homans sign is negative. LABORATORY DATA: Sodium 141, potassium 3.8, BUN 16, creatinine 0.91. WBC count 10.0, hematocrit 32. 6. CHEST X-RAY: Shows chest tube present with right basilar atelectasis, no pneumothorax. IMPRESSION: 1. Status post right lower lobectomy for adenocarcinoma. PET scan showing no evidence of any metast atic disease before surgery. 2. Hypertension. 3. Hyperlipidemia. 4. Mild anemia. 5. History of fibromyalgia. PLAN: Will continue present treatment. Closely monitor for any signs of sepsis, respiratory failure . Recheck labs in a.m. Dictated By: KRISHAN HYATT MD SR/NTS Conf#: [id number] DID#: [id number] CC: BRADFORD LORA MD;*EndCC*
--- NOTE | 2018-08-24 18:24 | EN ---
Date/Time of Note Date/Time of Note DATE: 08/24/18 TIME: 18:18 Event Note Medicine Medicine Event Note ONCOLOGY consultation dictated. Pt is 58 y/o female with recent findng of 4.5 CM RLL mass. Lesion was resected and Bx performed at time of surgery suggests an adenocarcinoma. Clinical stage is IIA (cT2b,cN0,cM0) Is this is the actual pathologic stage pt will require adjuvant chemotherapy. Probable treatment would include cisplatin, pemetrexed and bevacizumab. Will check CEA, FE, TIBC, % Sat and Ferritin. Thank you, MD CINTHIA Mccarthy STANLEY H MD Aug 24, 2018 18:24
--- NOTE | 2018-08-24 19:15 | CONS ---
DATE OF ADMISSION: 08/23/2018 DATE OF CONSULTATION: 08/24/2018 TYPE OF CONSULTATION: Medical oncology. PHYSICIAN REQUESTING CONSULTATION: Chivo Gannon MD REASON FOR CONSULTATION: Diagnosis of adenocarcinoma of the lung. Dear Dr. Gannon: Thank you very much for asking me to see this very pleasant patient in oncologic consultation. As yo u know, Ms. Díaz is a 58-year-old female who is an employee here at [employer] [facility] [employer]. The patient was admitted to [facility] after being found to have a mass on PET CT s can. This was a 4.5 cm right lower lobe mass with an SUV of 4. The patient had been experiencing right-sided chest pain for several months. In retrospect, the nestor ent also had been experiencing episodes of shortness of breath and weakness for the past year. The patient did have a chronic cough, but states that she had previously had a cough related to postn fab drip. She has never had any hemoptysis. The patient states that the pain was somewhat pleuritic in nature. It radiated to various areas incl uding the back. The patient denies fevers, chills or night sweats. She has experienced approximately a 20-pound weig ht loss in the past 3 months, but states this was intentional. The patient had been seen in the emergency room on 07/28/2018 because of chest pain and the above sym ptoms. A CT angiogram of the chest and CT scan of the abdomen did not reveal any intraabdominal mass es, adenopathy, or any inflammatory process. There was, however, a CT angiogram of the chest, a 4.8 x 4.2 cm mass-like consolidation in the right lower lobe, abutting the pleura. There was no obvious other pulmonary nodules or adenopathy. The patient has now undergone a surgery today performed by Dr. Bradford Lora. The patient underwent a r ight thoracoscopy with a right lower lobe wedge resection followed by a right lower lobe lobectomy. There was also a thoracic lymphadenectomy. The patient did have a bronchoscopic examination at the initiation of surgery and there were no endob ronchial lesions identified. Postoperatively, the patient is experiencing some pain, but otherwise has been feeling well. PAST MEDICAL HISTORY: The patient's past history includes a history of juvenile rheumatoid arthritis as well as hypertension. PAST SURGICAL HISTORY: Previous surgeries have included a laparoscopic cholecystectomy as well as ar throscopic surgery on the right knee. The patient has also had in the past as well as a hy sterectomy. MEDICATIONS AT THIS TIME: Included: 1. Acetaminophen. 2. Diphenhydramine. 3. Famotidine. 4. Duloxetine. 5. Hydrochlorothiazide. 6. Hydroxychloroquine. MEDICATIONS PRIOR TO ADMISSION: Included: 1. Amlodipine. 2. Atorvastatin. 3. Cymbalta. 4. Hydrochlorothiazide. 5. Hydroxychloroquine. 6. Leflunomide. 7. Pantoprazole. ALLERGIES: Include: 1. MEPERIDINE. 2. NITROFURANTOIN. 3. CODEINE. 4. ERYTHROMYCIN. 5. POVIDONE IODINE SOLUTION. FAMILY HISTORY: The patient's family history is remarkable in that her father had gastric carcinoma. The patient's mother had hypertension and renal failure. She has a sister who has Graves' disease. Other family members with diabetes. Also a sister with sarcoidosis. PHYSICAL EXAMINATION: GENERAL: At this time reveals a well-developed, well-nourished female in no acute distress. VITAL SIGNS: Temperature 98.5 orally, pulse 102 per minute and regular, respirations 22, blood press ure 128/89, pulse oximetry 100% on room air. SKIN: No ecchymosis, no petechiae or rashes. HEENT: Normocephalic. No evidence of trauma. Pupils equal, round, react to light and accommodation . Sclerae are nonicteric. Oral mucosa is moist without lesions. Tongue is well papillated. No gin gival hyperplasia, no hypertrophy of Waldeyer ring, no mucosal telangiectasias. NECK: Supple. No jugular venous distention or thyroid enlargement. CHEST: There is evidence of the recent thorascopic surgery in the right chest. There are decreased breath sounds in the right. There is a right-sided chest tube. Left chest is clear. CARDIOVASCULAR: Sinus tachycardia. No S3, S4 or murmurs. ABDOMEN: Flat and soft. There is no organomegaly, mass or tenderness. EXTREMITIES: Good range of motion, no clubbing, edema or cyanosis. No palpable cords or Homans sign . NEUROLOGIC: Normal. LABORATORY DATA: White count today is 10,000 with an absolute neutrophil count of 9400, hemoglobin 1 1, hematocrit 32.6, MCV 80.1, MCH 27.0, MCHC 33.7, RDW 14.1 and platelet count 188,000. Protime was 12.6 seconds, INR of 0.93, PTT 26.4 seconds. Sodium 141, potassium 3.8, BUN 16, creatinine 0.91 and calcium 8.9. DISCUSSION: The intraoperative biopsy suggests that the lesion is an adenocarcinoma. Given the size of the tumor described on both PET scan and CT scan, this would therefore be a T2b les ion based on the fact that it is greater than 4 cm, but less than 5 cm. If the lymph nodes are negative, this patient would be considered a stage IIA disease and would then likely be a candidate for adjuvant chemotherapy with a combination of cisplatin and pemetrexed with o r without bevacizumab. The final determination regarding therapy will depend upon accurate pathologic staging as well as gen omic studies which will be performed including an EGFR, ALK-1 and ROS studies. I have requested that a CEA be performed. The patient also is somewhat microcytic and we will theref ore obtain iron studies to determine if the patient is actually iron deficient as a cause for her aung kocytosis. Once again, thank you very much for the opportunity of participating in the medical care of this very interesting and pleasant patient. I will be happy to follow this patient with you and assist in her oncologic evaluation and follow up as necessary. Dictated By: JAYME VICENTE MD SR/NTS Conf#: [id number] DID#: [id number] CC: BRADFORD LORA MD;*EndCC*
[2018-08-24] MEDS: METOCLOPRAMIDE 10 MG INJ IV PRN (22:16)
[2018-08-25] VITALS (25 sets, daily range): BP systolic 103–138; BP diastolic 75–99; PULSE 83–109; RESP 6–28
[2018-08-25] MEDS: D5W-0.45 NACL + KCL 20 MEQ 1,000 ML IV SCH ×2 (01:13→03:37)
[2018-08-25] MEDS: HYDROmorphONE 0.5 MG/0.5 ML SYG IV PRN ×4 (01:59→22:58)
[2018-08-25] MEDS: ENOXAPARIN 40 MG/0.4 ML SYG SC SCH (06:27)
--- NOTE | 2018-08-25 06:56 | PN ---
Date/Time of Note Date/Time of Note DATE: 08/25/18 TIME: 06:55 Assessment/Plan Lines/Catheters IV Catheter Type (from Nrsg): Peripheral IV Ling in Place (from Nrsg): No Assessment/Plan Assessment/Plan still some pain, chest tube 220cc over 12hrs. no air leak, cxr shows atelectasis. hep lock. place on water seal. transfer to PITER. ambulate. Exam/Review of Systems Vital Signs Vitals Vital Signs Date Temp Pulse Resp B/P (MAP) Pulse Ox O2 O2 Flow FiO2 Time Delivery Rate 08/25/18 2.0 06:28 08/25/18 83 12 113/84 100 Nasal 06:00 (94) Cannula 08/25/18 98.0 04:00 Intake and Output 08/24/18 08/24/18 08/25/18 1515:00 23:00 07:00 IntakeIntake Total 1010 ml 960 ml 480 ml OutputOutput Total 610 ml 610 ml BalanceBalance 1010 ml 350 ml -130 ml Results Result Diagram: 08/25/18 0457 08/25/18 0457 BRADFORD LORA MD Aug 25, 2018 06:56
--- NOTE | 2018-08-25 08:42 | CONS ---
Assessment/Plan Assessment/Plan Assessment/Plan (Daily) Assessment and recommendations; 1. patient status post right lower lobectomy with history of recently diagnosed lung mass. Pathology results are pending. Continue current supportive care. Consultation Date/Type/Reason Admit Date/Time Aug 23, 2018 at 10:18 Initial Consult Date Type of Consult Pulmonary Reason for Consultation Patient's condition is stable. Complains of mild pain involving right chest. General exam; middle-aged female, awake alert, currently no distress. Date/Time of Note DATE: 08/25/18 TIME: 08:40 Exam/Review of Systems Exam Vitals Vital Signs Date Temp Pulse Resp B/P (MAP) Pulse Ox O2 O2 Flow FiO2 Time Delivery Rate 08/25/18 2.0 06:28 08/25/18 83 12 113/84 100 Nasal 06:00 (94) Cannula 08/25/18 98.0 04:00 Intake and Output 08/24/18 08/24/18 08/25/18 1515:00 23:00 07:00 IntakeIntake Total 1010 ml 960 ml 660 ml OutputOutput Total 610 ml 610 ml BalanceBalance 1010 ml 350 ml 50 ml Exam H ENT exam; supple neck, no JVD. No lymphadenopathy. Midline trachea. No thyromegaly. Patient has fair dentition. No neck masses. Chest exam; diminished but clear breath sounds. Right-sided chest tube in place. S1-S2 audible, no murmurs. Regular rhythm. Abdomen exam; soft, nontender. No organomegaly. Bowel sounds audible. Extremity exam; no peripheral edema clubbing. 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 Results Result Diagram: 08/25/18 0457 08/25/18 0457 Results 24hrs Laboratory Tests Test 08/24/18 17:51 08/24/18 17:55 08/25/18 04:57 Iron Level 20 L Total Iron Binding Capacity 231 L Percent Iron Saturation 9 L Ferritin 185.0 Carcinoembryonic Antigen 3.2 White Blood Count 10.7 Red Blood Count 3.94 L Hemoglobin 10.7 L Hematocrit 32.6 L Mean Corpuscular Volume 82.7 Mean Corpuscular Hemoglobin 27.2 L Mean Corpuscular Hemoglobin Concent 32.8 Red Cell Distribution Width 14.7 H Platelet Count 184 Mean Platelet Volume 11.1 H Immature Granulocytes % 0.600 H Neutrophils % 89.0 H Lymphocytes % 4.7 L Monocytes % 5.4 Eosinophils % 0.0 Basophils % 0.3 Nucleated Red Blood Cells % 0.0 Immature Granulocytes # 0.060 H Neutrophils # 9.6 H Lymphocytes # 0.5 L Monocytes # 0.6 Eosinophils # 0.0 Basophils # 0.0 Nucleated Red Blood Cells # 0.0 Sodium Level 143 Potassium Level 4.7 Chloride Level 111 H Carbon Dioxide Level 27 Anion Gap 5 Blood Urea Nitrogen 15 Creatinine 0.93 Est Glomerular Filtrat Rate mL/min > 60 Glucose Level 127 Calcium Level 8.5 Magnesium Level 2.3 Medications Medication Current Medications Oxycodone/ Acetaminophen (Percocet (5/ 325)) 1 tab Q6H PRN PO PAIN LEVEL 6-10; Start 08/23/18 at 16:00 Ketorolac Tromethamine (Toradol) 30 mg Q6H PRN IV PAIN Last administered on 08/23at 17:26; Admin Dose 30 MG; Start 08/23/18 at 16:00; Stop 08/26/18 at 15:59 Acetaminophen (Tylenol Tab) 650 mg Q6H PRN PO MILD PAIN(1-3)OR ELEVATED TEMP; Start 08/23/18 at 16:00 Diphenhydramine HCl (Benadryl) 25 mg Q6H PRN IV ITCHING; Start 08/23/18 at 16:00 Metoclopramide HCl (Reglan) 10 mg Q6H PRN IV NAUSEA AND/OR VOMITING Last administered on 08/24/18at 22:16; Admin Dose 10 MG; Start 08/23/18 at 16:00 Ondansetron HCl (Zofran Inj) 4 mg Q6H PRN IV NAUSEA AND/OR VOMITING Last administered on 08/24/18at 19:34; Admin Dose 4 MG; Start 08/23/18 at 16:00 Famotidine (Pepcid) 20 mg BID PO Last administered on 08/24/18at 20:48; Admin Dose 20 MG; Start 08/23/18 at 21:00 Phenol (Cepastat Lozenge) 1 lozenge PRN PRN MT SORE THROAT; Start 08/23/18 at 16:00 Enoxaparin Sodium (Lovenox) 40 mg DAILY@07 SC Last administered on 08/25/18at 06:27; Admin Dose 40 MG; Start 08/24/18 at 07:00 Hydromorphone HCl (Dilaudid) 1 mg Q2H PRN IV PAIN LEVEL 6-10 Last administered on 08/25/18 06:28; Admin Dose 1 MG; Start 08/24/18 at 17:30 DELROY QUIJANO Aug 25, 2018 08:42
[2018-08-25] MEDS: FAMOTIDINE 20 MG TAB PO SCH ×2 (10:14→21:01)
[2018-08-25] MEDS: KETOROLAC 30 MG INJ IV PRN ×2 (10:20→18:20)
[2018-08-25] MEDS ORDERED: MAGNESIUM HYDROXIDE 30ML CUP PO ONE (14:00)
--- NOTE | 2018-08-25 14:15 | PN ---
DATE: 08/25/2018 SUBJECTIVE: The patient complains of moderate chest pain, right. Denies any hemoptysis. No shortne ss of breath, has been constipated, being admitted, did pass some flatus. PHYSICAL EXAMINATION: VITAL SIGNS: Temperature 98.7, blood pressure 131/93, O2 saturation 98% on 3 liters nasal cannula. HEENT: Mild pallor without cyanosis. Tongue is coated, dry. NECK: Supple. CHEST: Decreased breath sounds at bases. HEART: S1, S2 heard. LUNGS: Decreased breath sounds, right base. Chest tube functioning well. EXTREMITIES: No edema. Homans sign is negative. LABORATORY DATA: WBC count 10.7, hematocrit 32.6, platelet count 184,000. Potassium 4.7, magnesium 2.3. CEA is 3.2. Dr. Cardona's detailed oncologic consultation greatly appreciated. Case discussed with Dr. Anthony Tabor. Verbal report is the margins are clear on the specimen and 6 specimens for lymph node all negative for malignancy. IMPRESSION: 1. Adenocarcinoma, right lung, status post excision. 2. Hypertension. 3. Hyperlipidemia. 4. History of fibromyalgia. 5. Constipation secondary to medications. PLAN: Will start the patient on stool softeners and MOM at night. Follow recommendations per Dr. Latasha valentine. Dictated By: KRISHAN HYATT MD SR/NTS Conf#: [id number] DID#: [id number] CC: BRADFORD LORA MD;*EndCC*
[2018-08-25] MEDS: ONDANSETRON 4 MG INJ IV PRN ×2 (14:55→22:58)
--- NOTE | 2018-08-25 20:42 | PN ---
DATE: 08/25/2018 SUBJECTIVE: The patient is feeling somewhat better. She is experiencing chest pain. States that hi s present analgesia with Toradol and hydromorphone is adequate. The patient states she was able to eat today without nausea or vomiting. Has had increased cough and is productive of some discolored sputum. OBJECTIVE: GENERAL: The patient is a well-developed, well-nourished female in no acute distress. VITAL SIGNS: Temperature is 98.5 orally, pulse 97 per minute and regular, respirations 12, blood pre ssure 133/99, pulse oximetry is 99% on room air. SKIN: No ecchymosis, no petechiae or rashes. HEENT: Normocephalic. No evidence of trauma. Pupils are equal, round, react to light and accommoda tion. Sclerae are nonicteric. Oral mucosa is moist without lesions. Tongue is well papillated. Th ere is no gingival hyperplasia, no hypertrophy of Waldeyer's ring. NECK: Supple. No jugular venous distention or thyroid enlargement. No carotid bruits. CHEST: Some decreased breath sounds on the right side as compared to the left. There is evidence of the recent thoracostomy and chest tube in place on the right side. Left hemithorax is clear. HEART: Regular sinus rhythm. No S3, S4 or murmurs. No rubs. ABDOMEN: Soft. No masses, no ascites. EXTREMITIES: Good range of motion. No clubbing, no edema or cyanosis. No palpable cords or Homans sign. NEUROLOGIC: Normal. LABORATORY: White blood cell count 10,700 with absolute neutrophil count of 9600, hemoglobin was 10. 7, hematocrit 32.6 and platelet count 184,000. Sodium 143, potassium 4.7, BUN 15, creatinine 0.93. CEA is 3.2. Serum iron is 20, iron binding capacity is 231, percent saturation 9 and ferritin is 185. 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 Maximum diameter is approx imately 4.5 cm. The tumor does grow to the pleura, but it is unclear whether it involves or extends to the pleura at this time. All harvested lymph nodes are negative and margins of resection are kourtney r of tumor. ASSESSMENT: 1. Adenocarcinoma, clinical and probable pathologic stage II-A. 2. Iron deficiency. We will await final pathology findings as far as pleural involvement as well as genomic studies but t his patient would likely require adjuvant chemotherapy. As previously noted, this likely combination would be cisplatin and pemetrexed with bevacizumab. As noted, the patient does have evidence of iron deficiency. It is unclear what the etiology of the patient's iron deficiency is. We will give the patient parenteral iron replacement. On admission, t he patient was not actually anemic and therefore will likely require only 3 days of ferric gluconate infusions. Dictated By: JAYME VICENTE MD SR/NTS Conf#: [id number] DID#: [id number] CC: JABARI RIOS MD; KRISHAN HYATT MD; BRADFORD LORA MD;*End*
[2018-08-25] MEDS: DOCUSATE SODIUM 100 MG CAP PO SCH (21:01)
[2018-08-25] MEDS: ATORVASTATIN 10 MG TAB PO SCH (21:01)
[2018-08-26] VITALS (15 sets, daily range): BP systolic 107–163; BP diastolic 72–94; PULSE 88–112; RESP 10–18
[2018-08-26] MEDS: KETOROLAC 30 MG INJ IV PRN (00:36)
[2018-08-26] MEDS: HYDROmorphONE 0.5 MG/0.5 ML SYG IV PRN ×3 (03:17→20:36)
--- NOTE | 2018-08-26 06:39 | PN ---
Date/Time of Note Date/Time of Note DATE: 08/26/18 TIME: 06:39 Assessment/Plan Lines/Catheters IV Catheter Type (from Nrs): Saline Lock Ling in Place (from Nrs): No Assessment/Plan Assessment/Plan decreasing drainage, no air leak. check cxr. possibly remove chest tube later today or tomorrow. increase activity Exam/Review of Systems Vital Signs Vitals Vital Signs Date Temp Pulse Resp B/P (MAP) Pulse Ox O2 O2 Flow FiO2 Time Delivery Rate 08/26/18 98.1 89 18 163/88 99 04:37 (113) 08/26/18 Room Air 03:00 08/26/18 2.0 02:10 Intake and Output 08/25/18 08/25/18 08/26/18 1515:00 23:00 07:00 IntakeIntake Total 90 ml 780 ml OutputOutput Total 140 ml BalanceBalance 90 ml 640 ml Results Result Diagram: 08/25/18 0457 08/25/18 0457 BRADFORD LORA MD Aug 26, 2018 06:39
[2018-08-26] MEDS: ENOXAPARIN 40 MG/0.4 ML SYG SC SCH (06:54)
[2018-08-26] MEDS: ONDANSETRON 4 MG INJ IV PRN ×2 (07:47→14:06)
[2018-08-26] MEDS: FAMOTIDINE 20 MG TAB PO SCH ×2 (08:29→20:33)
[2018-08-26] MEDS: DOCUSATE SODIUM 100 MG CAP PO SCH ×2 (08:29→20:33)
[2018-08-26] MEDS: METOCLOPRAMIDE 10 MG INJ IV PRN (08:33)
[2018-08-26] MEDS ORDERED: CYANOCOBALAMIN 1000 MCG INJ IM ONE (09:30)
--- NOTE | 2018-08-26 09:31 | PN ---
DATE: 08/26/2018 SUBJECTIVE: The patient states that she had a somewhat difficult night because of pain and some naus ea and has been moved to telemetry. The patient does have pain mostly on deep inspiration. As noted, she does have some nausea but has n ot had emesis. The patient has been started on metoclopramide as well as Ondansetron. OBJECTIVE: GENERAL: The patient is a well-developed, well-nourished female who is in no acute distress but is e xperiencing some pain. VITAL SIGNS: Temperature 98.5 orally, pulse 88 per minute and regular, respirations 18, blood pressu re 142/83, pulse oximetry 98% on room air. SKIN: No ecchymosis, no petechiae or rashes. HEENT: Normocephalic. No evidence of trauma. Pupils equal, round, reactive to light and accommodat ion. Sclerae nonicteric. Oral mucosa is moist without lesions. NECK: Supple. No jugular venous distention or thyroid enlargement. CHEST: There is a chest tube in place in the right hemithorax draining clear liquid. Breath sounds on the right are somewhat decreased with rhonchi and rub heard on deep inspiration. Left is clear. HEART: Regular sinus rhythm, no S3, S4 or murmurs. NODES: No palpable lymphadenopathy in any lymph node bearing area. ABDOMEN: Soft, no masses, no ascites. EXTREMITIES: Good range of motion, no clubbing, edema or cyanosis. No palpable cords or Homans sign . NEUROLOGIC: Normal. Final pathology is available. This does demonstrate a well-differentiated invasive mucinous adenocar cinoma. It is as noted was 4.5 cm in its maximum diameter. There was no lymphovascular invasion rachel ntified and the tumor does not involve the visceral pleural. The tumor is 0.2 cm from the stapled ma rgin. A total of 4 lymph nodes have been harvested and they are all negative for metastatic carcinom a. ASSESSMENT: 1. 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 2. Iron deficiency. Pathology has now been completed. Awaiting results of genomic studies. As noted, the patient is a candidate for adjuvant chemotherapy with a combination of cisplatin and pe metrexed as well as the addition of bevacizumab. Therapy however, may be somewhat different if the p atient is found to have a "taxi cab driver" mutation. In anticipation of the use of pemetrexed, will start the patient on vitamin B12 on a monthly basis as well as daily folic acid. The patient is also to receive 3 daily infusions of ferric gluconate which will each contain 125 mg o f elemental iron. Will receive first infusion today. Dictated By: JAYME VICENTE MD SR/NTS Conf#: [id number] DID#: [id number] CC: BRADFORD LORA MD;*End*
[2018-08-26] MEDS: AMLODIPINE 5 MG TAB PO SCH (11:10)
[2018-08-26] MEDS: FOLIC ACID 1 MG TAB PO SCH (11:10)
[2018-08-26] MEDS: SOD FERRIC GLUC COMPLX 125 MG in SOD CHLORIDE 0.9% 100 ML IVPB SCH (13:21)
--- NOTE | 2018-08-26 13:49 | CONS ---
Consult Date/Type/Reason Admit Date/Time Aug 23, 2018 at 10:18 Initial Consult Date Type of Consult Pulmonary Date/Time of Note DATE: 08/26/18 TIME: 13:48 Subjective Patient remained stable this morning chest tube still having greater than 100 cc output per 24 hours. Right-sided pleuritic chest pain. Despite this she continues to ambulate. Objective Vital Signs Date Temp Pulse Resp B/P (MAP) Pulse Ox O2 O2 Flow FiO2 Time Delivery Rate 08/26/18 99 13:06 08/26/18 97.4 18 149/94 98 Room Air 11:12 (112) 08/26/18 2.0 02:10 Intake and Output 08/25/18 08/25/18 08/26/18 1515:00 23:00 07:00 IntakeIntake Total 90 ml 780 ml OutputOutput Total 140 ml 130 ml BalanceBalance 90 ml 640 ml -130 ml Exam PHYSICAL EXAMINATION: GENERAL: Well-nourished, well-developed lady, comfortable at rest, talking in full and complete sentences. VITAL SIGNS: NECK: Supple. No JVD or lymphadenopathy. CARDIAC: S1, S2. No added sounds or murmurs. CHEST: Diminished air entry bilaterally, but no rales or wheezes. ABDOMEN: Soft, nontender. No guarding or rebound. EXTREMITIES: No cyanosis, clubbing, edema. NEUROLOGICAL: Grossly intact. No focal deficits. Results/Medications Result Diagram: 08/25/18 0457 08/25/18 0457 Medications Current Medications Oxycodone/ Acetaminophen (Percocet (5/ 325)) 1 tab Q6H PRN PO PAIN LEVEL 6-10; Start 08/23/18 at 16:00 Ketorolac Tromethamine (Toradol) 30 mg Q6H PRN IV PAIN Last administered on 08/26/18at 00:36; Admin Dose 30 MG; Start 08/23/18 at 16:00; Stop 08/26/18 at 15:59 Acetaminophen (Tylenol Tab) 650 mg Q6H PRN PO MILD PAIN(1-3)OR ELEVATED TEMP; Start 08/23/18 at 16:00 Diphenhydramine HCl (Benadryl) 25 mg Q6H PRN IV ITCHING; Start 08/23/18 at 16:00 Metoclopramide HCl (Reglan) 10 mg Q6H PRN IV NAUSEA AND/OR VOMITING Last administered on 08/26/18 08:33; Admin Dose 10 MG; Start 08/23/18 at 16:00 Ondansetron HCl (Zofran Inj) 4 mg Q6H PRN IV NAUSEA AND/OR VOMITING Last administered on 08/26/18 07:47; Admin Dose 4 MG; Start 08/23/18 at 16:00 Famotidine (Pepcid) 20 mg BID PO Last administered on 08/26/18 08:29; Admin Dose 20 MG; Start 08/23/18 at 21:00 Phenol (Cepastat Lozenge) 1 lozenge PRN PRN MT SORE THROAT; Start 08/23/18 at 16:00 Enoxaparin Sodium (Lovenox) 40 mg DAILY@07 SC Last administered on 08/26/18 06:54; Admin Dose 40 MG; Start 08/24/18 at 07:00 Hydromorphone HCl (Dilaudid) 1 mg Q2H PRN IV PAIN LEVEL 6-10 Last administered on 08/26/18 03:17; Admin Dose 1 MG; Start 08/24/18 at 17:30 Docusate Sodium (Colace) 100 mg BID PO Last administered on 08/26/18 08:29; Ad min Dose 100 MG; Start 08/25/18 at 21:00 Atorvastatin Calcium (Lipitor) 10 mg HS PO Last administered on 08/25/18 21:01; Admin Dose 10 MG; Start 08/25/18 at 21:00 Ferric Sodium Gluconate Complex 125 mg/Sodium Chloride 100 ml @ 100 mls/hr DAILY@1300 IVPB Last administered on 08/26/18 13:21; Admin Dose 100 MLS/HR; Start 08/26/18 at 13:00; Stop 08/28/18 at 13:59 Folic Acid (Folic Acid) 1 mg DAILY PO Last administered on 08/26/18 11:10; Admin Dose 1 MG; Start 08/26/18 at 09:30 Amlodipine Besylate (Norvasc) 5 mg DAILY PO Last administered on 08/26/18 11:10; Admin Dose 5 MG; Start 08/26/18 at 09:30 Assessment/Plan Hospital Course (Demo Recall) Assessment 1. Status post resection of adenocarcinoma stage IIa N0M0 per recent pathology findings. Plan 1. Continue chest tube drainage 2. Encourage ambulation incentive spirometry 3. Hematology oncology recommendations regarding possible chemotherapy. JABARI RIOS MD, [facility] Aug 26, 2018 13:49
[2018-08-26] MEDS ORDERED: MAGNESIUM CITRATE 300 ML BTL PO ONE (14:30)
[2018-08-26] MEDS: DEXTROSE 5%-0.45% NACL 1,000 ML IV SCH (15:20)
--- NOTE | 2018-08-26 16:47 | PN ---
DATE: 08/26/2018 SUBJECTIVE: Patient continues to have moderate right-sided chest pain, very poor p.o. intake of both solids and liquids, constipated for the last 4 days. PHYSICAL EXAMINATION: VITAL SIGNS: Temperature 97.4, blood pressure ____/94, O2 sats 98%. LUNGS: Decreased breath sounds at bases. HEART: S1, S2 heard, no definite gallops. EXTREMITIES: No edema. Dr. Cardona's hematology/oncology consultation and recommendation greatly appreciated. Patient prese ntly receiving intravenous iron prior to consideration of combination chemotherapy. IMPRESSION: 1. Adenocarcinoma, right lung status post excision. So far pathology reports, lymph nodes negative for malignancy. Her pathology is invasive mucinous adenocarcinoma, well-differentiated. 2. Hypertension. 3. Hyperlipidemia. PLAN: The patient will be started on intravenous hydration as her p.o. intake is poor. We will also give 1 dose of mag citrate, increase activity per Dr. Jessica. Dictated By: KRISHAN HYATT MD, SR/CONCHA Conf#: [id number] DID#: [id number]
[2018-08-26] MEDS: ATORVASTATIN 10 MG TAB PO SCH (20:33)
[2018-08-27] VITALS (11 sets, daily range): BP systolic 128–154; BP diastolic 77–96; PULSE 85–109; RESP 18–20
[2018-08-27] MEDS: DEXTROSE 5%-0.45% NACL 1,000 ML IV SCH (03:40)
[2018-08-27] MEDS: HYDROmorphONE 0.5 MG/0.5 ML SYG IV PRN ×3 (03:50→23:50)
--- NOTE | 2018-08-27 06:46 | PN ---
Date/Time of Note Date/Time of Note DATE: 08/27/18 TIME: 06:45 Assessment/Plan Lines/Catheters IV Catheter Type (from [facility]): Peripheral IV Ling in Place (from [facility]): No Assessment/Plan Assessment/Plan remove chest tube today. check cxr. home tomorrow Exam/Review of Systems Vital Signs Vitals Vital Signs Date Temp Pulse Resp B/P (MAP) Pulse Ox O2 O2 Flow FiO2 Time Delivery Rate 08/27/18 85 04:00 08/27/18 98.1 20 131/77 98 03:39 (95) 08/26/18 Room Air 15:25 08/26/18 2.0 02:10 Intake and Output 08/26/18 08/26/18 08/27/18 1515:00 23:00 07:00 IntakeIntake Total 120 ml 580 ml 1000 ml OutputOutput Total 50 ml BalanceBalance 120 ml 530 ml 1000 ml Results Result Diagram: 08/27/18 0536 08/25/18 0457 BRADFORD LORA MD Aug 27, 2018 06:46
[2018-08-27] MEDS: ENOXAPARIN 40 MG/0.4 ML SYG SC SCH (06:52)
[2018-08-27] MEDS: DOCUSATE SODIUM 100 MG CAP PO SCH ×2 (08:46→21:32)
[2018-08-27] MEDS: AMLODIPINE 5 MG TAB PO SCH (08:46)
[2018-08-27] MEDS: FOLIC ACID 1 MG TAB PO SCH (08:46)
[2018-08-27] MEDS: FAMOTIDINE 20 MG TAB PO SCH ×2 (08:46→21:32)
[2018-08-27] MEDS: SOD FERRIC GLUC COMPLX 125 MG in SOD CHLORIDE 0.9% 100 ML IVPB SCH (12:24)
--- NOTE | 2018-08-27 13:10 | PN ---
DATE: 08/27/2018 SUBJECTIVE: The patient continues right-sided chest pain, improved since yesterday after the chest t ube was taken out. Denies any fever or chills. No hemoptysis. PHYSICAL EXAMINATION GENERAL: The patient is awake, alert, in no acute distress. VITAL SIGNS: Temperature 98.4, blood pressure 154/93, O2 saturation 97% on room air. CHEST: Decreased breath sounds at the right base. HEART: S1, S2 with no definite gallops. EXTREMITIES: No edema. Mild tenderness on palpation of the right foot, dorsal aspect (patient has b een complaining of pain for several months. No definite history of trauma). X-rays of the right foot showed no evidence of fracture. Normal mineralization and alignment. Sodiu m 143, potassium 4.1, BUN 12, creatinine 0.85. LABORATORY DATA: WBC count 5.9, hematocrit 29.2. IMPRESSION: 1. Adenocarcinoma, right lung status post excision, path consistent with invasive mucinous adenocarc inoma, well-differentiated. 2. Iron deficiency anemia. 3. Hypertension, well compensated. 4. Hyperlipidemia. 5. Right foot pain, likely myofascial strain versus possible Mohr's neuroma. PLAN: Will continue present treatment. We will get a followup podiatry consultation in due course. Increase activity and observe. Dictated By: KRISHAN HYATT MD SR/NTS Conf#: [id number] DID#: [id number] CC: JABARI RIOS MD; BRADFORD LORA MD;*EndCC*
[2018-08-27] MEDS: ONDANSETRON 4 MG INJ IV PRN (16:57)
--- NOTE | 2018-08-27 19:58 | CONS ---
Assessment/Plan Assessment/Plan Assessment/Plan (Daily) 58 year old female post surgery for resection of lung cancer, found T2N0 She is recovering well. Pain is the main issue, dilaudid 0.5 mg IV helps, but she is not tolerant to many oral narcotics. Wants to try Tylenol. Could also try oral dilaudid if needed. Consultation Date/Type/Reason Admit Date/Time Aug 23, 2018 at 10:18 Initial Consult Date Type of Consult Heme Onc for Brendan Reason for Consultation Lung cancer Date/Time of Note DATE: 08/27/18 TIME: 19:54 24 HR Interval Summary Free Text/Dictation She is recovering well. Chest tube removed today. She is walking and out of bed at times, eating well, having BMs. Only issue is pain from surgery and pain control. Dilaudid 0.5 mg iv helps, but she is not tolerant to oral hydrocodone, oxycodone or tramadol. Exam/Review of Systems Exam Vitals Vital Signs Date Temp Pulse Resp B/P (MAP) Pulse Ox O2 O2 Flow FiO2 Time Delivery Rate 08/27/18 109 16:00 08/27/18 2.0 15:42 08/27/18 98.4 19 128/78 98 Room Air 15:41 (95) Intake and Output 08/26/18 08/26/18 08/27/18 1515:00 23:00 07:00 IntakeIntake Total 120 ml 580 ml 1225 ml OutputOutput Total 50 ml BalanceBalance 120 ml 530 ml 1225 ml Exam WDWN female, in NAD, groggy after dilaudid given. A and O x 3 Clear bilaterally Abd soft, non tender. Ext no edema. Results Result Diagram: 08/27/18 0536 08/27/18 0536 Results 24hrs Laboratory Tests Test 08/27/18 05:36 White Blood Count 5.9 # Red Blood Count 3.57 L Hemoglobin 9.7 L Hematocrit 29.2 L Mean Corpuscular Volume 81.8 L Mean Corpuscular Hemoglobin 27.2 L Mean Corpuscular Hemoglobin Concent 33.2 Red Cell Distribution Width 14.7 H Platelet Count 175 Mean Platelet Volume 10.9 H Immature Granulocytes % 0.500 H Neutrophils % 72.1 Lymphocytes % 12.2 L Monocytes % 9.5 Eosinophils % 5.2 Basophils % 0.5 Nucleated Red Blood Cells % 0.0 Immature Granulocytes # 0.030 Neutrophils # 4.3 Lymphocytes # 0.7 L Monocytes # 0.6 Eosinophils # 0.3 Basophils # 0.0 Nucleated Red Blood Cells # 0.0 Sodium Level 143 Potassium Level 4.1 Chloride Level 107 Carbon Dioxide Level 31 Anion Gap 5 Blood Urea Nitrogen 12 Creatinine 0.85 Est Glomerular Filtrat Rate mL/min > 60 Glucose Level 128 Calcium Level 8.7 Medications Medication Current Medications Oxycodone/ Acetaminophen (Percocet (5/ 325)) 1 tab Q6H PRN PO PAIN LEVEL 6-10; Start 08/23/18 at 16:00 Acetaminophen (Tylenol Tab) 650 mg Q6H PRN PO MILD PAIN(1-3)OR ELEVATED TEMP; Start 08/23/18 at 16:00 Diphenhydramine HCl (Benadryl) 25 mg Q6H PRN IV ITCHING; Start 08/23/18 at 16:00 Metoclopramide HCl (Reglan) 10 mg Q6H PRN IV NAUSEA AND/OR VOMITING Last administered on 08/26/18 08:33; Admin Dose 10 MG; Start 08/23/18 at 16:00 Ondansetron HCl (Zofran Inj) 4 mg Q6H PRN IV NAUSEA AND/OR VOMITING Last administered on 08/27/18 16:57; Admin Dose 4 MG; Start 08/23/18 at 16:00 Famotidine (Pepcid) 20 mg BID PO Last administered on 08/27/18 08:46; Admin Dose 20 MG; Start 08/23/18 at 21:00 Phenol (Cepastat Lozenge) 1 lozenge PRN PRN MT SORE THROAT; Start 08/23/18 at 16:00 Enoxaparin Sodium (Lovenox) 40 mg DAILY@07 SC Last administered on 08/27/18 06:52; Admin Dose 40 MG; Start 08/24/18 at 07:00 Docusate Sodium (Colace) 100 mg BID PO Last administered on 08/27/18 08:46; Admin Dose 100 MG; Start 08/25/18 at 21:00 Atorvastatin Calcium (Lipitor) 10 mg HS PO Last administered on 08/26/18 20:33; Admin Dose 10 MG; Start 08/25/18 at 21:00 Ferric Sodium Gluconate Complex 125 mg/Sodium Chloride 100 ml @ 100 mls/hr DAILY@1300 IVPB Last administered on 08/27/18at 12:24; Admin Dose 100 MLS/HR; Start 08/26/18 at 13:00; Stop 08/28/18 at 13:59 Folic Acid (Folic Acid) 1 mg DAILY PO Last administered on 08/27/18at 08:46; Admin Dose 1 MG; Start 08/26/18 at 09:30 Amlodipine Besylate (Norvasc) 5 mg DAILY PO Last administered on 08/27/18at 08:46; Admin Dose 5 MG; Start 08/26/18 at 09:30 Hydrochlorothiazide (Hydrochlorothiazide) 12.5 mg DAILY@0600 PO ; Start 08/28/18 at 06:00 Hydromorphone HCl (Dilaudid) 0.5 mg Q2H PRN IV PAIN LEVEL 6-10 Last administered on 08/27/18at 17:14; Admin Dose 0.5 MG; Start 08/27/18 at 17:30 CARLOZ MCCABE MD Aug 27, 2018 19:58
[2018-08-27] MEDS: ATORVASTATIN 10 MG TAB PO SCH (21:32)
[2018-08-28] VITALS (12 sets, daily range): BP systolic 130–144; BP diastolic 78–89; PULSE 72–100; RESP 18–19
[2018-08-28] MEDS: ACETAMINOPHEN 325 MG TAB PO PRN ×2 (03:52→10:16)
[2018-08-28] MEDS: HYDROmorphONE 0.5 MG/0.5 ML SYG IV PRN ×4 (06:22→23:56)
[2018-08-28] MEDS: HYDROCHLOROTHIAZIDE 12.5 MG CAP PO SCH (06:23)
[2018-08-28] MEDS: ENOXAPARIN 40 MG/0.4 ML SYG SC SCH (06:31)
[2018-08-28] MEDS: AMLODIPINE 5 MG TAB PO SCH (08:21)
[2018-08-28] MEDS: DOCUSATE SODIUM 100 MG CAP PO SCH ×2 (08:21→21:18)
[2018-08-28] MEDS: FOLIC ACID 1 MG TAB PO SCH (08:21)
[2018-08-28] MEDS: FAMOTIDINE 20 MG TAB PO SCH ×2 (08:21→21:18)
--- NOTE | 2018-08-28 11:31 | CONS ---
Assessment/Plan Assessment/Plan Assessment/Plan (Daily) Assessment and recommendations; 1. Patient status post right lower lobectomy due to adenocarcinoma. 2. Postoperative pain. 3. Chest x-ray from yesterday shows essentially clear lung hui. 4. History of hypertension. Continue current supportive care. Patient encouraged to ambulate as well as to continue to use incentive spirometer. Consultation Date/Type/Reason Admit Date/Time Aug 23, 2018 at 10:18 Initial Consult Date Type of Consult Pulmonary Date/Time of Note DATE: 08/28/18 TIME: 11:30 24 HR Interval Summary Free Text/Dictation Patient's condition is gradually improving. Still complains of significant right lower chest pain. Increased by certain movements. Denies any shortness of breath. Denies any cough. Any hemoptysis. General exam; middle-aged female, awake alert, currently no distress. Exam/Review of Systems Exam Vitals Vital Signs Date Temp Pulse Resp B/P (MAP) Pulse Ox O2 O2 Flow FiO2 Time Delivery Rate 08/28/18 98.9 83 18 133/89 97 Room Air 11:00 (104) 08/28/18 2.0 27 02:50 Intake and Output 08/27/18 08/27/18 08/28/18 1515:00 23:00 07:00 IntakeIntake Total 300 ml 1000 ml 900 ml BalanceBalance 300 ml 1000 ml 900 ml Exam H EENT exam; supple neck, no JVD. No lymphadenopathy. Midline trachea. No neck masses. Patient has good dentition. Chest exam; clear to auscultation. Right lateral thoracotomy scar is healing well. S1-S2 audible, no murmurs. Regular rhythm. Abdomen exam; soft, nontender. Bowel sounds audible. Extremity exam; peripheral edema clubbing. 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 Results Result Diagram: 08/27/18 0536 08/27/18 0536 Medications Medication Current Medications Oxycodone/ Acetaminophen (Percocet (5/ 325)) 1 tab Q6H PRN PO PAIN LEVEL 6-10; Start 08/23/18 at 16:00 Acetaminophen (Tylenol Tab) 650 mg Q6H PRN PO MILD PAIN(1-3)OR ELEVATED TEMP Last administered on 08/28/18at 10:16; Admin Dose 650 MG; Start 08/23/18 at 16:00 Diphenhydramine HCl (Benadryl) 25 mg Q6H PRN IV ITCHING; Start 08/23/18 at 16:00 Metoclopramide HCl (Reglan) 10 mg Q6H PRN IV NAUSEA AND/OR VOMITING Last administered on 08/26/18 08:33; Admin Dose 10 MG; Start 08/23/18 at 16:00 Ondansetron HCl (Zofran Inj) 4 mg Q6H PRN IV NAUSEA AND/OR VOMITING Last administered on 08/27/18 16:57; Admin Dose 4 MG; Start 08/23/18 at 16:00 Famotidine (Pepcid) 20 mg BID PO Last administered on 08/28/18 08:21; Admin Dose 20 MG; Start 08/23/18 at 21:00 Phenol (Cepastat Lozenge) 1 lozenge PRN PRN MT SORE THROAT; Start 08/23/18 at 16:00 Enoxaparin Sodium (Lovenox) 40 mg DAILY@07 SC Last administered on 08/28/18 06:31; Admin Dose 40 MG; Start 08/24/18 at 07:00 Docusate Sodium (Colace) 100 mg BID PO Last administered on 08/28/18 08:21; Admin Dose 100 MG; Start 08/25/18 at 21:00 Atorvastatin Calcium (Lipitor) 10 mg HS PO Last administered on 08/27/18 21:32; Admin Dose 10 MG; Start 08/25/18 at 21:00 Ferric Sodium Gluconate Complex 125 mg/Sodium Chloride 100 ml @ 100 mls/hr DAILY@1300 IVPB Last administered on 08/27/18 12:24; Admin Dose 100 MLS/HR; Start 08/26/18 at 13:00; Stop 08/28/18 at 13:59 Folic Acid (Folic Acid) 1 mg DAILY PO Last administered on 08/28/18 08:21; Admin Dose 1 MG; Start 08/26/18 at 09:30 Amlodipine Besylate (Norvasc) 5 mg DAILY PO Last administered on 08/28/18 08:21; Admin Dose 5 MG; Start 08/26/18 at 09:30 Hydrochlorothiazide (Hydrochlorothiazide) 12.5 mg DAILY@0600 PO Last administered on 08/28/18 06:23; Admin Dose 12.5 MG; Start 08/28/18 at 06:00 Hydromorphone HCl (Dilaudid) 0.5 mg Q2H PRN IV PAIN LEVEL 6-10 Last ad ministered on 08/28/18at 06:22; Admin Dose 0.5 MG; Start 08/27/18 at 17:30 DELROY QUIJANO 9, 2019 11:31
[2018-08-28] MEDS: SOD FERRIC GLUC COMPLX 125 MG in SOD CHLORIDE 0.9% 100 ML IVPB SCH (13:00)
[2018-08-28] MEDS: ONDANSETRON 4 MG INJ IV PRN ×2 (13:02→23:38)
--- NOTE | 2018-08-28 17:12 | CONS ---
Assessment/Plan Assessment/Plan Assessment/Plan (Daily) 1. 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 2. Iron deficiency - completed IV iron replacement therapy. 3. Pain control post thoracotomy. Plan: Start oral dilaudid for pain control as discussed with Dr. Estevez. She cannot tolerate oxycodone, hydrocodone, NSAIDS or gabapentin. Otherwise doing well. Consultation Date/Type/Reason Admit Date/Time Aug 23, 2018 at 10:18 Initial Consult Date Type of Consult Heme Onc for Brendan Reason for Consultation lung cancer Date/Time of Note DATE: 08/28/18 TIME: 17:09 24 HR Interval Summary Free Text/Dictation She is generally doing well, walked on miller, practiced stairs, no shortness of breath. Main issue remains pain control. Tylenol helps but works less than 45 min. Dilaudid 0.5 mg iv works as well. Exam/Review of Systems Exam Vitals Vital Signs Date Temp Pulse Resp B/P (MAP) Pulse Ox O2 O2 Flow FiO2 Time Delivery Rate 08/28/18 95 16:03 08/28/18 98.6 19 132/82 100 Room Air 15:18 (99) 08/28/18 2.0 27 02:50 Intake and Output 08/27/18 08/27/18 08/28/18 1515:00 23:00 07:00 IntakeIntake Total 300 ml 1000 ml 900 ml BalanceBalance 300 ml 1000 ml 900 ml Exam NAD Incisions are clean and healing well. Chest clear. Abd soft. No edema. Results Result Diagram: 08/27/18 0536 08/27/18 0536 Medications Medication Current Medications Oxycodone/ Acetaminophen (Percocet (5/ 325)) 1 tab Q6H PRN PO PAIN LEVEL 6-10; Start 08/23/18 at 16:00 Acetaminophen (Tylenol Tab) 650 mg Q6H PRN PO MILD PAIN(1-3)OR ELEVATED TEMP Last administered on 08/28/18at 10:16; Admin Dose 650 MG; Start 08/23/18 at 16:00 Diphenhydramine HCl (Benadryl) 25 mg Q6H PRN IV ITCHING; Start 08/23/18 at 16:00 Metoclopramide HCl (Reglan) 10 mg Q6H PRN IV NAUSEA AND/OR VOMITING Last admin istered on 08/26/18 08:33; Admin Dose 10 MG; Start 08/23/18 at 16:00 Ondansetron HCl (Zofran Inj) 4 mg Q6H PRN IV NAUSEA AND/OR VOMITING Last administered on 08/28/18 13:02; Admin Dose 4 MG; Start 08/23/18 at 16:00 Famotidine (Pepcid) 20 mg BID PO Last administered on 08/28/18 08:21; Admin Dose 20 MG; Start 08/23/18 at 21:00 Phenol (Cepastat Lozenge) 1 lozenge PRN PRN MT SORE THROAT; Start 08/23/18 at 16:00 Enoxaparin Sodium (Lovenox) 40 mg DAILY@07 SC Last administered on 08/28/18 06:31; Admin Dose 40 MG; Start 08/24/18 at 07:00 Docusate Sodium (Colace) 100 mg BID PO Last administered on 08/28/18 08:21; Admin Dose 100 MG; Start 08/25/18 at 21:00 Atorvastatin Calcium (Lipitor) 10 mg HS PO Last administered on 08/27/18 21:32; Admin Dose 10 MG; Start 08/25/18 at 21:00 Folic Acid (Folic Acid) 1 mg DAILY PO Last administered on 08/28/18 08:21; Admin Dose 1 MG; Start 08/26/18 at 09:30 Amlodipine Besylate (Norvasc) 5 mg DAILY PO Last administered on 08/28/18 08:21; Admin Dose 5 MG; Start 08/26/18 at 09:30 Hydrochlorothiazide (Hydrochlorothiazide) 12.5 mg DAILY@0600 PO Last administered on 08/28/18 06:23; Admin Dose 12.5 MG; Start 08/28/18 at 06:00 Hydromorphone HCl (Dilaudid) 0.5 mg Q2H PRN IV PAIN LEVEL 6-10 Last administered on 08/28/18 16:46; Admin Dose 0.5 MG; Start 08/27/18 at 17:30 CARLOZ MCCABE MD Aug 28, 2018 17:12
[2018-08-28] MEDS: ATORVASTATIN 10 MG TAB PO SCH (21:18)
[2018-08-28] MEDS: HYDROmorphONE 2 MG TAB PO PRN (21:18)
[2018-08-29] VITALS (11 sets, daily range): BP systolic 126–144; BP diastolic 81–93; PULSE 64–98; RESP 18
[2018-08-29] MEDS: HYDROmorphONE 0.5 MG/0.5 ML SYG IV PRN ×3 (03:02→14:16)
[2018-08-29] MEDS: HYDROCHLOROTHIAZIDE 12.5 MG CAP PO SCH (06:05)
[2018-08-29] MEDS: ENOXAPARIN 40 MG/0.4 ML SYG SC SCH (06:10)
[2018-08-29] MEDS: ACETAMINOPHEN 325 MG TAB PO PRN ×3 (07:10→20:37)
--- NOTE | 2018-08-29 07:35 | PN ---
DATE: 08/28/2018 SUBJECTIVE: The patient continues to have moderate pain in the right chest, some epigastric pain as well. Did have a bowel movement. No nausea. OBJECTIVE: VITAL SIGNS: Temperature 98.9, blood pressure 133/89, O2 saturation 97% on room air. HEENT: Mild pallor without cyanosis. CHEST: Decreased breath sounds at the right base. No rales or rhonchi. HEART: S1, S2 heard. No murmur, rub or gallops. EXTREMITIES: No edema. IMAGING DATA: X-ray from today shows slight increase in the right apical pneumothorax out of 5 to 10 % of volume, opacification of the right lower lung zone with some fluid. IMPRESSION: 1. Adenocarcinoma of the right lung, status post excision with no hemothorax. Chest tube has been r emoved. 2. Hypertension. 3. Hyperlipidemia. 4. Anemia. PLAN: We will continue narcotic analgesia and we will attempt to stabilize on p.o. meds before consi dering discharge. Surgical recommendations per Dr. Jessica. Dictated By: KRISHAN HYATT MD SR/NTS Conf#: [id number] DID#: [id number] CC: BRADFORD JESSICA MD;*EndCC*
[2018-08-29] MEDS: DOCUSATE SODIUM 100 MG CAP PO SCH ×2 (08:11→20:43)
[2018-08-29] MEDS: FAMOTIDINE 20 MG TAB PO SCH ×2 (08:11→20:43)
[2018-08-29] MEDS: AMLODIPINE 5 MG TAB PO SCH (08:11)
[2018-08-29] MEDS: FOLIC ACID 1 MG TAB PO SCH (08:11)
[2018-08-29] MEDS: ONDANSETRON 4 MG INJ IV PRN (10:41)
--- NOTE | 2018-08-29 13:59 | PN ---
DATE: 08/29/2018 SUBJECTIVE: The patient was recently switched to p.o. Dilaudid 2 mg q.4 hours p.r.n. The patient con tinues to have severe pain in right chest. Denies any fever or chills. She did have a bowel movemen t today. OBJECTIVE: VITAL SIGNS: Temperature 98.0, blood pressure 130/81, O2 sats 96% on room air. HEENT: Moderate pallor without cyanosis. CHEST: Decreased breath sounds at the right base. HEART: S1, S2 heard. No gallops. EXTREMITIES: No edema. Homans negative. IMPRESSION: 1. Status post right lung resection of mass consistent with adenocarcinoma, stage II-A N0 M0 with se ronak pain. 2. Mild anemia. 3. Hypertension. 4. Hyperlipidemia. PLAN: We will discuss with Dr. Cardona regarding further pain management. Continue narcotic analges ia for now. Recheck labs today. Dictated By: KRISHAN HYATT MD SR/NTS Conf#: [id number] DID#: [id number] CC: JABARI RIOS MD; BRADFORD LORA MD;*EndCC*
[2018-08-29] MEDS ORDERED: FENTAnyl PATCH 12 MCG/HR TRANSDERM SCH (18:00)
[2018-08-29] MEDS ORDERED: TIZANIDINE 2 MG TAB PO ONE (20:30)
[2018-08-29] MEDS: TIZANIDINE 4 MG TAB PO SCH ×2 (20:41→21:00)
[2018-08-29] MEDS: ATORVASTATIN 10 MG TAB PO SCH (20:43)
--- NOTE | 2018-08-29 20:44 | PN ---
DATE: 08/29/2018 SUBJECTIVE: The patient continues to complain of right-sided chest pain. Worse with inspiration. T here has been a productive cough as well, but no hemoptysis. The patient has tried multiple analgesics, which caused either sedation or nausea and are not effecti ve as far as pain relief. OBJECTIVE: GENERAL: The patient is a well-developed, well-nourished female who is in no acute distress at this time. VITAL SIGNS: Temperature 99.2 orally, pulse 97 per minute and regular, respirations 18, blood pressu re 126/87, pulse oximetry 98% on room air. SKIN: No ecchymosis, no petechiae or rashes. HEENT: Normocephalic. No evidence of trauma. Pupils equal, round, react to light and accommodation . Sclerae are nonicteric. Oral mucosa is moist without lesions. NECK: Supple. No jugular venous distention or thyroid enlargement. CHEST: Decreased breath sounds on the right side as compared to left. There are no rubs or wheezes. There is evidence of the recent thoracotomy. Chest tube is out. HEART: Regular sinus rhythm, no S3, S4 or murmurs. No rubs. ABDOMEN: Soft, no masses, no ascites. EXTREMITIES: Good range of motion. No clubbing, no edema or cyanosis. No palpable cords or Homans sign. NEUROLOGIC: Normal. LABORATORY DATA: White count 6200 with an absolute neutrophil count of 4600, hemoglobin 10.6, hemato crit 32.4, MCV is 81 and RDW 14.5, platelet count 223,000. Sodium 141, potassium 4.2, BUN 13, creatinine 1, calcium 10.3. ASSESSMENT: 1. 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 2. Chest pain, poorly controlled postoperative pain. DISCUSSION: Multiple types of analgesia have been attempted. The patient did get relief from intrav enous hydromorphone, but has not achieve the same results with oral hydromorphone. I have applied a fentanyl patch of 12 mcg per hour. This will take approximately 24 hours to achieve some type of drug level which may be beneficial. We will add tizanidine 2 mg single dose in an attempt to decrease any pain which may be due to muscle spasm. The patient states that she is unable to tolerate other agents such as gabapentin. The patient is on enoxaparin and therefore, there is concern about using nonsteroidal anti-inflammato jones. Dictated By: JAYME VICENTE MD SR/NTS Conf#: [id number] DID#: [id number] CC: BRADFORD LORA MD;*EndCC*
[2018-08-29] MEDS: HYDROmorphONE 2 MG TAB PO PRN (21:21)
[2018-08-30] VITALS (11 sets, daily range): BP systolic 106–126; BP diastolic 75–83; PULSE 86–104; RESP 18
[2018-08-30] MEDS: HYDROmorphONE 2 MG TAB PO PRN ×3 (03:44→13:21)
[2018-08-30] MEDS: ONDANSETRON 4 MG INJ IV PRN ×2 (03:44→09:03)
[2018-08-30] MEDS: HYDROCHLOROTHIAZIDE 12.5 MG CAP PO SCH (06:29)
[2018-08-30] MEDS: ENOXAPARIN 40 MG/0.4 ML SYG SC SCH (06:30)
[2018-08-30] MEDS: FAMOTIDINE 20 MG TAB PO SCH ×2 (08:17→20:02)
[2018-08-30] MEDS: FOLIC ACID 1 MG TAB PO SCH (08:17)
[2018-08-30] MEDS: AMLODIPINE 5 MG TAB PO SCH (08:17)
[2018-08-30] MEDS: DOCUSATE SODIUM 100 MG CAP PO SCH ×2 (08:18→20:02)
--- NOTE | 2018-08-30 10:54 | PN ---
DATE: 08/30/2018 SUBJECTIVE: The patient has severe chest pain, has been started on the patch with fentanyl with no s ignificant improvement also nauseous. Dr. Cardona's oncologic consultation is greatly appreciated. OBJECTIVE: VITAL SIGNS: Temperature 99.2, blood pressure 116/81, O2 saturation 100% on room air. CHEST: Decreased breath sounds at the right base. HEART: S1, S2, no definite gallops. EXTREMITIES: No edema. LABORATORY DATA: Calcium 10.3 yesterday. IMPRESSION: 1. Status post right lung resection of adenocarcinoma. 2. Mild anemia. 3. Severe pain secondary to postop state. 4. Hypertension. 5. Hyperlipidemia. 6. Hypercalcemia. PLAN: We will obtain portable chest x-ray and repeat labs including calcium, follow pain management recommendation and oncology recommendations per Dr. Cardona. Dictated By: KRISHAN HYATT MD SR/NTS Conf#: [id number] DID#: [id number] CC: KRISHAN HYATT MD; JABARI RIOS MD; BRADFORD LORA MD;*EndCC*
[2018-08-30] MEDS: ATORVASTATIN 10 MG TAB PO SCH (20:02)
[2018-08-30] MEDS ORDERED: TIZANIDINE 2 MG TAB PO ONE (22:30)
[2018-08-30] MEDS: POLYETHYLENE GLYCOL 17 GM PACKET PO SCH (22:31)
--- NOTE | 2018-08-30 22:45 | PN ---
DATE: 08/30/2018 SUBJECTIVE: The patient still is experiencing pain. She feels that it may be slightly better than y day. Pain is present at all times, however. The patient also is experiencing some constipation, also feels nausea when she takes oral Dilaudid. The patient did not use tizanidine yesterday as ordered. OBJECTIVE: GENERAL: The patient well-developed, well-nourished female in no acute distress. VITAL SIGNS: Temperature is 98.4 orally, pulse 100 per minute and regular, respirations 18, blood pr essure 122/77, pulse oximetry 96% on room air. SKIN: No ecchymosis. No petechiae or rashes. HEENT: Normocephalic. No evidence of trauma. Pupils equal, round, reactive to light and accommodat ion. Sclerae nonicteric. Oral mucosa is moist, without lesions. Tongue is well papillated. No gin gival hyperplasia. No hypertrophy of Waldeyer ring. NECK: Supple. No jugular venous distention. No thyroid enlargement. No carotid bruits. CHEST: Clear on the left side with no rhonchi, wheezes, rales or rubs. There are decreased breath s ounds on the right side with rhonchi and rubs. There is evidence of the recent thoracotomy scar whic h is healed, also evidence of previous chest tube. There is no crepitance or subcutaneous emphysema. HEART: Sinus tachycardia but no S3, S4 or murmurs. NODES: No palpable lymphadenopathy. ABDOMEN: Soft. No masses. No ascites. EXTREMITIES: Good range of motion. No clubbing. No edema or cyanosis. No palpable cords or Homans sign. NEUROLOGIC: Normal. LABORATORY DATA: White count 6900 with an absolute neutrophil count of 4900, hemoglobin 11.2, hemato crit 35.3, and platelet count is 244,000. Sodium 142, potassium 4.7, BUN 15, creatinine 1.19. ASSESSMENT: 1. Stage IIA non-small cell carcinoma of the lung. 2. Chest pain status post thoracotomy. DISCUSSION: The patient is beginning to experience some minimal pain relief related to the fentanyl patch which was started 24 hours ago. It is possible the patient may sustain further relief. If the re is not a significant change, tomorrow we will consider increasing to 25 mcg/hr. Unfortunately, th e patient is unable to tolerate any type of oral analgesia which is followed by various complaints. The patient, as noted, is experiencing some complaints of constipation. We will try MiraLax. The kristopher jasso did try mag citrate which caused some nausea. I have encouraged the patient also to try tizanidine which may help to magnify the benefit from the f entanyl. Dictated By: JAYME VICENTE MD SR/NTS Conf#: [id number] DID#: [id number] CC: BRADFORD LORA MD;*EndCC*
[2018-08-31] VITALS (11 sets, daily range): BP systolic 110–119; BP diastolic 71–83; PULSE 88–99; RESP 16–18
[2018-08-31] MEDS: HYDROmorphONE 2 MG TAB PO PRN (00:48)
[2018-08-31] MEDS: HYDROCHLOROTHIAZIDE 12.5 MG CAP PO SCH (06:07)
[2018-08-31] MEDS: ENOXAPARIN 40 MG/0.4 ML SYG SC SCH (06:14)
[2018-08-31] MEDS: ACETAMINOPHEN 325 MG TAB PO PRN (07:37)
[2018-08-31] MEDS: DOCUSATE SODIUM 100 MG CAP PO SCH ×2 (08:13→20:08)
[2018-08-31] MEDS: AMLODIPINE 5 MG TAB PO SCH (08:13)
[2018-08-31] MEDS: FAMOTIDINE 20 MG TAB PO SCH ×2 (08:14→20:08)
[2018-08-31] MEDS: POLYETHYLENE GLYCOL 17 GM PACKET PO SCH ×3 (08:14→20:08)
[2018-08-31] MEDS: FOLIC ACID 1 MG TAB PO SCH (08:14)
--- NOTE | 2018-08-31 10:05 | PN ---
DATE: 08/31/2018 SUBJECTIVE: The patient continues to have severe pain in right chest. Fentanyl patch dosage was inc reased to [address] Cardona. She was also started on MiraLax for constipation. OBJECTIVE: VITAL SIGNS: Temperature 98.2, blood pressure is 116/77, O2 saturation 98% on 2 liters nasal cannula . CHEST: Revealed decreased breath sounds at right base. EXTREMITIES: No edema. IMPRESSION: 1. Status post right lung resection of adenocarcinoma. 2. Mild anemia. 3. Severe postop pain being controlled titrating the medications for same. 4. Hypertension. 5. Hyperlipidemia. PLAN: We will continue present pain management per Dr. Cardona. Once the pain is better controlled we will discharge the patient home. Dictated By: KRISHAN HYATT MD SR/NTS Conf#: [id number] DID#: [id number] CC: JABARI RIOS MD; BRADFORD LORA MD; KRISHAN HYATT MD;*EndCC*
[2018-08-31] MEDS ORDERED: HYDROmorphONE 1 MG/ML SYG IV ONE ×2 (10:30→20:30)
[2018-08-31] MEDS: CEPASTAT LOZENGE MT PRN ×2 (13:04→18:53)
[2018-08-31] MEDS: ONDANSETRON 4 MG INJ IV PRN ×2 (13:04→21:28)
--- NOTE | 2018-08-31 19:51 | PN ---
DATE: 08/31/2018 SUBJECTIVE: The patient is still experiencing abdominal pain. Did have an increase in the Fentanyl patch to 25 mcg per hour. Prior to the application of this patch, the patient was given a single dos e of IV hydromorphone. This did help relieve the patient's pain for 3 to 4 hours. The patient has not had much in the way of nausea or vomiting. Did use MiraLax with some results. OBJECTIVE: GENERAL: The patient is a well-developed, well-nourished female in no acute distress. VITAL SIGNS: Temperature 98.3, pulse 95 per minute and regular, respirations 16, blood pressure 110/ 71, pulse oximetry 96% on room air. SKIN: No ecchymosis, no petechiae or rashes. HEENT: Normocephalic. No evidence of trauma. Pupils equal, round, react to light and accommodation . Sclerae nonicteric. Oral mucosa is without lesions. Tongue is well papillated. There is no ging ival hyperplasia, no hypertrophy of Waldeyer ring. NECK: Supple. No jugular venous distention or thyroid enlargement. CHEST: Clear to auscultation and percussion on the left. On the right, there are some wheezes and r honchi. No rubs are heard. HEART: Regular sinus rhythm, no S3, S4 or murmurs. ABDOMEN: Soft, no masses, no ascites. Bowel sounds are active. EXTREMITIES: No clubbing. No edema or cyanosis. No palpable cords or Homans sign. NEUROLOGIC: Normal. ASSESSMENT: 1. Non-small cell carcinoma of the lung resected stage IIA. 2. Right chest wall pain secondary to #1. PLAN: We will continue patient on fentanyl patch 25 mcg per day. Now we began to discuss of desirin g a home infusion pump for pain relief. I do not think that this is appropriate. Dictated By: JAYME VICENTE MD SR/NTS Conf#: [id number] DID#: [id number] CC: BRADFORD LORA MD;*EndCC*
[2018-08-31] MEDS: ATORVASTATIN 10 MG TAB PO SCH (20:08)
[2018-08-31] MEDS ORDERED: HYDROmorphONE 0.5 MG/0.5 ML SYG IV ONE (21:00)
[2018-09-01] VITALS (10 sets, daily range): BP systolic 102–121; BP diastolic 70–82; PULSE 71–100; RESP 17–19
[2018-09-01] MEDS: HYDROCHLOROTHIAZIDE 12.5 MG CAP PO SCH (06:18)
[2018-09-01] MEDS: ENOXAPARIN 40 MG/0.4 ML SYG SC SCH (06:26)
[2018-09-01] MEDS: DOCUSATE SODIUM 100 MG CAP PO SCH ×2 (08:32→20:05)
[2018-09-01] MEDS: FOLIC ACID 1 MG TAB PO SCH (08:32)
[2018-09-01] MEDS: FAMOTIDINE 20 MG TAB PO SCH ×2 (08:32→20:05)
[2018-09-01] MEDS: AMLODIPINE 5 MG TAB PO SCH (08:32)
[2018-09-01] MEDS: POLYETHYLENE GLYCOL 17 GM PACKET PO SCH ×2 (08:37→20:06)
--- NOTE | 2018-09-01 10:40 | PN ---
DATE: 09/01/2018 SUBJECTIVE: The patient continues to have severe pain, right chest, had to be given 1 dose of Dilaud id last night. VITAL SIGNS: Temperature 98.5, blood pressure 110/71, O2 saturation 96% on room air. CHEST: Decreased breath sounds at bases, right. HEART: S1, S2 with no definite gallops. EXTREMITIES: No edema. KUB done. The patient was having abdominal pain yesterday, shows right-side d stools. No obstruction evident. IMPRESSION: 1. Severe postop pain status post right lung resection for adenocarcinoma. 2. Mild anemia. 3. Hypertension. 4. Hyperlipidemia. 5. Constipation. PLAN: Will increase activity. Discontinue Lovenox. Start the patient on low dose nonsteroidals in addition to fentanyl. The patient cannot tolerate large pills. Will start the patient on Meloxicam 50 mg daily and observe and if the patient is stable over the next 24 hours and the pain is controlle d, will discharge in 24 hours. Dictated By: KRISHAN HYATT MD SR/NTS Conf#: [id number] DID#: [id number] CC: BRADFORD LORA MD;*EndCC*
[2018-09-01] MEDS: MELOXICAM 15 MG TAB PO SCH (10:44)
[2018-09-01] MEDS ORDERED: KETOROLAC 15 MG INJ IV STA (12:42)
[2018-09-01] MEDS ORDERED: HYDROmorphONE 0.5 MG/0.5 ML SYG IV STA (16:05)
--- NOTE | 2018-09-01 16:46 | PN ---
Date/Time of Note Date/Time of Note DATE: 09/01/18 TIME: 16:42 Assessment/Plan VTE Prophylaxis Risk score (from Nsg)>0 risk: 0 SCD applied (from Nsg): Yes Pharmacological prophylaxis: other (ambulation) Lines/Catheters IV Catheter Type (from Nrsg): Saline Lock Urinary Cath still in place: No Assessment/Plan Assessment/Plan Pt still c/o severe chest pain after surgery. IV Dilaudid works but the prior low dose Dilaudid orally did not. I will give 0.5 mg IV now to alleviate her pain but then use Dilaudid 4 mg PO q4h. She is on fentanyl patch but at the lowest level of 25 mcg/hr. Tomorrow I anticipate increasing the parch to 50. Discussed with pt and three family members. Result Diagram: 08/30/18 1034 08/30/18 1034 Subjective 24 Hr Interval Summary Free Text/Dictation Pain remains her main issue Exam/Review of Systems Exam Vitals Vital Signs Date Temp Pulse Resp B/P (MAP) Pulse Ox O2 O2 Flow FiO2 Time Delivery Rate 09/01/18 100 12:01 09/01/18 98.4 19 120/82 97 11:17 (95) 09/01/18 Room Air 04:00 08/31/18 2.0 08:52 08/30/18 28 00:56 Intake and Output 08/31/18 08/31/18 09/01/18 1515:00 23:00 07:00 IntakeIntake Total 800 ml 720 ml BalanceBalance 800 ml 720 ml Constitutional: alert, oriented Head: normocephalic Neck: supple Respiratory: clear to auscultation Cardiovascular: regular rate and rhythm Gastrointestinal: soft, non-tender Extremities: normal pulses Medications Medication Current Medications Acetaminophen (Tylenol Tab) 650 mg Q6H PRN PO MILD PAIN(1-3)OR ELEVATED TEMP Last administered on 08/31/18at 07:37; Admin Dose 650 MG; Start 08/23/18 at 16:00 Diphenhydramine HCl (Benadryl) 25 mg Q6H PRN IV ITCHING; Start 08/23/18 at 16:00 Metoclopramide HCl (Reglan) 10 mg Q6H PRN IV NAUSEA AND/OR VOMITING Last administered on 08/26/18at 08:33; Admin Dose 10 MG; Start 08/23/18 at 16:00 Ondansetron HCl (Zofran Inj) 4 mg Q6H PRN IV NAUSEA AND/OR VOMITING Last administered on 08/31/18 21:28; Admin Dose 4 MG; Start 08/23/18 at 16:00 Famotidine (Pepcid) 20 mg BID PO Last administered on 09/01/18 08:32; Admin Dose 20 MG; Start 08/23/18 at 21:00 Phenol (Cepastat Lozenge) 1 lozenge PRN PRN MT SORE THROAT Last administered on 08/31/18 18:53; Admin Dose 1 LOZENGE; Start 08/23/18 at 16:00 Docusate Sodium (Colace) 100 mg BID PO Last administered on 09/01/18 08:32; Admin Dose 100 MG; Start 08/25/18 at 21:00 Atorvastatin Calcium (Lipitor) 10 mg HS PO Last administered on 08/31/18 20:08; Admin Dose 10 MG; Start 08/25/18 at 21:00 Folic Acid (Folic Acid) 1 mg DAILY PO Last administered on 09/01/18 08:32; Admin Dose 1 MG; Start 08/26/18 at 09:30 Amlodipine Besylate (Norvasc) 5 mg DAILY PO Last administered on 09/01/18 08:32; Admin Dose 5 MG; Start 08/26/18 at 09:30 Hydrochlorothiazide (Hydrochlorothiazide) 12.5 mg DAILY@0600 PO Last administered on 09/01/18 06:18; Admin Dose 12.5 MG; Start 08/28/18 at 06:00 Hydromorphone HCl (Dilaudid) 2 mg Q4H PRN PO SEVERE PAIN LEVEL 7-10 Last administered on 08/31/18 00:48; Admin Dose 2 MG; Start 08/28/18 at 17:30 Polyethylene Glycol (Miralax) 17 gm BID PO Last administered on 08/31/18 18:54; Admin Dose 17 GM; Start 08/30/18 at 22:00 Fentanyl (Duragesic 25 Mcg/Hr Patch) 1 patch Q72H TRANSDERM Last administered on 08/31/18 08:14; Admin Dose 1 PATCH; Start 08/31/18 at 08:00 Meloxicam (Mobic) 15 mg DAILY PO Last administered on 09/01/18at 10:44; Admin Dose 15 MG; Start 09/01/18 at 11:30 MERLINE BLANCA MD Sep 01, 2018 16:46
[2018-09-01] MEDS ORDERED: BISACODYL (EC) 5 MG TAB PO PRN (17:00)
[2018-09-01] MEDS: ONDANSETRON 4 MG INJ IV PRN (17:08)
[2018-09-01] MEDS: HYDROmorphONE 2 MG TAB PO PRN (19:34)
[2018-09-01] MEDS: ATORVASTATIN 10 MG TAB PO SCH (20:05)
[2018-09-02] VITALS (11 sets, daily range): BP systolic 115–132; BP diastolic 70–84; PULSE 80–97; RESP 17–19
[2018-09-02] MEDS: HYDROmorphONE 2 MG TAB PO PRN ×2 (01:03→04:47)
[2018-09-02] MEDS: HYDROCHLOROTHIAZIDE 12.5 MG CAP PO SCH (06:14)
--- NOTE | 2018-09-02 09:38 | PN ---
Date/Time of Note Date/Time of Note DATE: 09/02/18 TIME: 09:34 Assessment/Plan VTE Prophylaxis Risk score (from Ns)>0 risk: 6 SCD applied (from Ns): Yes Pharmacological prophylaxis: LMWH (recently taking) Pharm contraindication: low risk/ambulating Lines/Catheters IV Catheter Type (from Nrsg): Saline Lock Urinary Cath still in place: No Assessment/Plan Assessment/Plan Pain is still an issue. She is awake but tired. I will increase the fentanyl patch dose from 25 to 50 mcg/h. Continue the Dilaudid prn. Note that she is having some bowel movements but is not eating well yet. Discussed with pt, family and Dr. Gannon. Result Diagram: 08/30/18 1034 08/30/18 1034 Subjective 24 Hr Interval Summary Free Text/Dictation Pt still c/o pain in the right chest. She takes the Dilaudid but says it just makes her tired but she does not get pain relief Exam/Review of Systems Exam Vitals Vital Signs Date Temp Pulse Resp B/P (MAP) Pulse Ox O2 O2 Flow FiO2 Time Delivery Rate 09/02/18 80 08:13 09/02/18 98.0 18 132/84 100 Mechanical 2.0 07:13 (100) Ventilator 08/30/18 28 00:56 Intake and Output 09/01/18 09/01/18 09/02/18 1515:00 23:00 07:00 IntakeIntake Total 1050 ml 120 ml BalanceBalance 1050 ml 120 ml Constitutional: alert Head: normocephalic Eyes: nl conjunctiva Neck: supple Respiratory: clear to auscultation, diminished breath sounds (at right base) Cardiovascular: regular rate and rhythm Gastrointestinal: soft, non-tender Medications Medication Current Medications Acetaminophen (Tylenol Tab) 650 mg Q6H PRN PO MILD PAIN(1-3)OR ELEVATED TEMP Last administered on 08/31/18at 07:37; Admin Dose 650 MG; Start 08/23/18 at 16:00 Diphenhydramine HCl (Benadryl) 25 mg Q6H PRN IV ITCHING; Start 08/23/18 at 16:00 Metoclopramide HCl (Reglan) 10 mg Q6H PRN IV NAUSEA AND/OR VOMITING Last administered on 08/26/18at 08:33; Admin Dose 10 MG; Start 08/23/18 at 16:00 Ondansetron HCl (Zofran Inj) 4 mg Q6H PRN IV NAUSEA AND/OR VOMITING Last administered on 09/01/18 17:08; Admin Dose 4 MG; Start 08/23/18 at 16:00 Famotidine (Pepcid) 20 mg BID PO Last administered on 09/01/18 20:05; Admin Dose 20 MG; Start 08/23/18 at 21:00 Phenol (Cepastat Lozenge) 1 lozenge PRN PRN MT SORE THROAT Last administered on 08/31/18 18:53; Admin Dose 1 LOZENGE; Start 08/23/18 at 16:00 Docusate Sodium (Colace) 100 mg BID PO Last administered on 09/01/18 20:05; Admin Dose 100 MG; Start 08/25/18 at 21:00 Atorvastatin Calcium (Lipitor) 10 mg HS PO Last administered on 09/01/18 20:05; Admin Dose 10 MG; Start 08/25/18 at 21:00 Folic Acid (Folic Acid) 1 mg DAILY PO Last administered on 09/01/18 08:32; Admin Dose 1 MG; Start 08/26/18 at 09:30 Amlodipine Besylate (Norvasc) 5 mg DAILY PO Last administered on 09/01/18 08:32; Admin Dose 5 MG; Start 08/26/18 at 09:30 Hydrochlorothiazide (Hydrochlorothiazide) 12.5 mg DAILY@0600 PO Last administered on 09/02/18 06:14; Admin Dose 12.5 MG; Start 08/28/18 at 06:00 Hydromorphone HCl (Dilaudid) 2 mg Q4H PRN PO SEVERE PAIN LEVEL 7-10 Last administered on 08/31/18 00:48; Admin Dose 2 MG; Start 08/28/18 at 17:30 Polyethylene Glycol (Miralax) 17 gm BID PO Last administered on 08/31/18 18:54; Admin Dose 17 GM; Start 08/30/18 at 22:00 Meloxicam (Mobic) 15 mg DAILY PO Last administered on 09/01/18 10:44; Admin Dose 15 MG; Start 09/01/18 at 11:30 Hydromorphone HCl (Dilaudid) 4 mg Q4H PRN PO SEVERE PAIN LEVEL 7-10 Last administered on 09/02/18at 04:47; Admin Dose 4 MG; Start 09/01/18 at 16:30 Bisacodyl (Dulcolax) 5 mg DAILY PRN PO CONSTIPATION Last administered on 09/01/18at 20:05; Admin Dose 5 MG; Start 09/01/18 at 17:00 Fentanyl (Duragesic 50 Mcg/Hr Patch) 1 patch Q72H TRANSDERM ; Start 09/02/18 at 10:00; Status UNV MERLINE BLANCA MD Sep 02, 2018 09:38
[2018-09-02] MEDS ORDERED: FENTAnyl PATCH 50 MCG/HR TRANSDERM SCH (10:30)
[2018-09-02] MEDS: DEXTROSE 5%-0.45% NACL 1,000 ML IV SCH (10:53)
[2018-09-02] MEDS: DOCUSATE SODIUM 100 MG CAP PO SCH ×2 (11:05→21:00)
[2018-09-02] MEDS: MELOXICAM 15 MG TAB PO SCH (11:05)
[2018-09-02] MEDS: POLYETHYLENE GLYCOL 17 GM PACKET PO SCH ×2 (11:05→21:00)
[2018-09-02] MEDS: FOLIC ACID 1 MG TAB PO SCH (11:07)
[2018-09-02] MEDS: FAMOTIDINE 20 MG TAB PO SCH ×2 (11:07→22:05)
[2018-09-02] MEDS: AMLODIPINE 5 MG TAB PO SCH (11:07)
--- NOTE | 2018-09-02 11:14 | PN ---
DATE: 09/02/2018 Dr. Pearson's consultation and recommendation greatly appreciated. SUBJECTIVE: The patient complains of severe pain, right chest, no shortness of breath. No hemoptysi s. Mild cough, but p.o. Dilaudid dose has been increased, which she has been taking regularly, on fe ntanyl 25 mcg q. 72 hours. PHYSICAL EXAMINATION: VITAL SIGNS: Temperature 98.0, blood pressure 138/84, O2 sats 100% on 2 liters nasal cannula. CHEST: Revealed decreased breath sounds right base. HEART: S1, S2, no definite gallops. EXTREMITIES: No edema. IMPRESSION: 1. Status post right lung resection for adenocarcinoma. 2. Severe postop pain being controlled, titrating the medications. 3. Mild anemia. 4. Hypertension. 5. Hyperlipidemia. PLAN: Will discuss with Dr. Pearson. Consider increasing the dose of fentanyl. Closely observe f or response. Patient has been advised to ambulate as much as possible. Dictated By: KRISHAN HYATT MD SR/NTS Conf#: [id number] DID#: [id number] CC: BRADFORD LORA MD;*EndCC*
--- NOTE | 2018-09-02 11:59 | CONS ---
Consultation Date/Type/Reason Admit Date/Time Aug 23, 2018 at 10:18 Initial Consult Date Type of Consult Pulmonary Date/Time of Note DATE: 09/02/18 TIME: 11:57 24 HR Interval Summary Free Text/Dictation Patient is still complaining of significant right chest pain. Denies any shortness of breath. Any coughing, hemoptysis. General exam; middle-aged female, awake alert, currently in no distress. H HEENT exam; supple neck, no JVD. No lymphadenopathy. Midline trachea. No thyromegaly. Patient has good dentition. No neck masses. Chest exam; diminished breath sounds right lower lobe. Thoracotomy incision scars have healed. Left lung is clear. S1-S2 audible, no murmurs. Regular rhythm. Abdomen exam; benign. Extremity exam; no peripheral edema. 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 Assessment and recommendations; 1. Patient admitted for right lower lobectomy due to adenocarcinoma. Status post minithoracotomy. 2. Postoperative pain. Requiring fentanyl patch at 50 mcg. With intermittent morphine dosing. Mobic started. 3. History of hypertension. Continue with supportive care. Consider discharge on pain medications. Further recommendations per oncologist. Exam/Review of Systems Exam Vitals Vital Signs Date Temp Pulse Resp B/P (MAP) Pulse Ox O2 O2 Flow FiO2 Time Delivery Rate 09/02/18 98.4 90 18 131/83 99 Nasal 2.0 11:08 (99) Cannula 08/30/18 28 00:56 Intake and Output 09/01/18 09/01/18 09/02/18 1515:00 23:00 07:00 IntakeIntake Total 1050 ml 120 ml BalanceBalance 1050 ml 120 ml Results Result Diagram: 08/30/18 1034 08/30/18 1034 Medications Medication Current Medications Acetaminophen (Tylenol Tab) 650 mg Q6H PRN PO MILD PAIN(1-3)OR ELEVATED TEMP Last administered on 08/31/18at 07:37; Admin Dose 650 MG; Start 08/23/18 at 16:00 Diphenhydramine HCl (Benadryl) 25 mg Q6H PRN IV ITCHING; Start 08/23/18 at 16:00 Metoclopramide HCl (Reglan) 10 mg Q6H PRN IV NAUSEA AND/OR VOMITING Last administered on 08/26/18at 08:33; Admin Dose 10 MG; Start 08/23/18 at 16:00 Ondansetron HCl (Zofran Inj) 4 mg Q6H PRN IV NAUSEA AND/OR VOMITING Last administered on 09/01/18 17:08; Admin Dose 4 MG; Start 08/23/18 at 16:00 Famotidine (Pepcid) 20 mg BID PO Last administered on 09/02/18 11:07; Admin Dose 20 MG; Start 08/23/18 at 21:00 Phenol (Cepastat Lozenge) 1 lozenge PRN PRN MT SORE THROAT Last administered on 08/31/18 18:53; Admin Dose 1 LOZENGE; Start 08/23/18 at 16:00 Docusate Sodium (Colace) 100 mg BID PO Last administered on 09/01/18 20:05; Admin Dose 100 MG; Start 08/25/18 at 21:00 Atorvastatin Calcium (Lipitor) 10 mg HS PO Last administered on 09/01/18 20:05; Admin Dose 10 MG; Start 08/25/18 at 21:00 Folic Acid (Folic Acid) 1 mg DAILY PO Last administered on 09/02/18 11:07; Admin Dose 1 MG; Start 08/26/18 at 09:30 Amlodipine Besylate (Norvasc) 5 mg DAILY PO Last administered on 09/02/18 11:07; Admin Dose 5 MG; Start 08/26/18 at 09:30 Hydrochlorothiazide (Hydrochlorothiazide) 12.5 mg DAILY@0600 PO Last administered on 09/02/18 06:14; Admin Dose 12.5 MG; Start 08/28/18 at 06:00 Hydromorphone HCl (Dilaudid) 2 mg Q4H PRN PO SEVERE PAIN LEVEL 7-10 Last administered on 08/31/18 00:48; Admin Dose 2 MG; Start 08/28/18 at 17:30 Polyethylene Glycol (Miralax) 17 gm BID PO Last administered on 08/31/18 18:54; Admin Dose 17 GM; Start 08/30/18 at 22:00 Meloxicam (Mobic) 15 mg DAILY PO Last administered on 09/01/18 10:44; Admin Dose 15 MG; Start 09/01/18 at 11:30 Hydromorphone HCl (Dilaudid) 4 mg Q4H PRN PO SEVERE PAIN LEVEL 7-10 Last administered on 09/02/18 04:47; Admin Dose 4 MG; Start 09/01/18 at 16:30 Bisacodyl (Dulcolax) 5 mg DAILY PRN PO CONSTIPATION Last administered on 09/01/18 20:05; Admin Dose 5 MG; Start 09/01/18 at 17:00 Fentanyl (Duragesic 50 Mcg/Hr Patch) 1 patch Q72H TRANSDERM Last administered on 09/02/18 11:01; Admin Dose 1 PATCH; Start 09/02/18 at 10:30 Dextrose/Sodium Chloride 1,000 ml @ 75 mls/hr [id number] IV Last administered on 09/02/18 10:53; Admin Dose 75 MLS/HR; Start 09/02/18 at 11:00 DELROY QUIJANO Sep 02, 2018 11:59
[2018-09-02] MEDS ORDERED: HYDROmorphONE 0.5 MG/0.5 ML SYG IV STA (14:13)
[2018-09-02] MEDS: ONDANSETRON 4 MG INJ IV PRN ×2 (14:23→22:03)
[2018-09-02] MEDS: ATORVASTATIN 10 MG TAB PO SCH (22:06)
[2018-09-03] VITALS (7 sets, daily range): BP systolic 106–138; BP diastolic 68–79; PULSE 79–104; RESP 17–18
[2018-09-03] MEDS: DEXTROSE 5%-0.45% NACL 1,000 ML IV SCH (00:43)
[2018-09-03] MEDS: HYDROCHLOROTHIAZIDE 12.5 MG CAP PO SCH (06:25)
--- NOTE | 2018-09-03 08:21 | CONS ---
Consult Date/Type/Reason Admit Date/Time Aug 23, 2018 at 10:18 Initial Consult Date Date/Time of Note DATE: 09/03/18 TIME: 08:18 Subjective Pt had her fent patch increased to 50mcg yesterday from 25mcg. Pt has had pain but yesterday her pain seemed to have decreased and today she feels very tired and blames the opiates. She would like to come off of them and only use PRN if truly indicated. Otherwise, doing ok. Ambulating. Has some appetite. Had a BM yesterday. Objective Vitals Vital Signs Date Temp Pulse Resp B/P (MAP) Pulse Ox O2 O2 Flow FiO2 Time Delivery Rate 09/03/18 84 08:13 09/03/18 98.7 18 138/78 97 08:03 (98) 09/02/18 Room Air 15:10 09/02/18 2.0 11:08 Intake and Output 09/02/18 09/02/18 09/03/18 1515:00 23:00 07:00 IntakeIntake Total 1530 ml 700 ml BalanceBalance 1530 ml 700 ml Exam NAD/A&Ox4 OP clear RRR no m/g/r CTA B Surgical scar on the right c/d/i Soft, NT, ND, +BS No c/c/e Results/Medications Result Diagram: 08/30/18 1034 08/30/18 1034 Home Meds Reported Medications Pantoprazole* (Protonix*) 40 Mg Tablet., 40 MG PO DAILY, TAB 08/23/18 Leflunomide* (Leflunomide*) 20 Mg Tablet, 20 MG PO DAILY, #30 TAB 08/23/18 Duloxetine Hcl* (Cymbalta*) 30 Mg Capsule.dr, 30 MG PO DAILY, CAP 08/23/18 Hydroxychloroquine Sulfate* (Plaquenil*) 200 Mg Tab, 200 MG PO DAILY, TAB 08/23/18 Atorvastatin Calcium (Atorvastatin Calcium) 10 Mg Tablet, 10 MG PO QHS, #30 TAB 08/23/18 Hydrochlorothiazide* (Hydrochlorothiazide*) 12.5 Mg Tablet, 12.5 MG PO DAILY, #30 TAB 08/23/18 Amlodipine Besylate* (Norvasc*) 5 Mg Tablet, 5 MG PO DAILY, TAB 08/23/18 Medications Current Medications Acetaminophen (Tylenol Tab) 650 mg Q6H PRN PO MILD PAIN(1-3)OR ELEVATED TEMP Last administered on 08/31/18 07:37; Admin Dose 650 MG; Start 08/23/18 at 16:00 Diphenhydramine HCl (Benadryl) 25 mg Q6H PRN IV ITCHING; Start 08/23/18 at 16:00 Metoclopramide HCl (Reglan) 10 mg Q6H PRN IV NAUSEA AND/OR VOMITING Last administered on 08/26/18 08:33; Admin Dose 10 MG; Start 08/23/18 at 16:00 Ondansetron HCl (Zofran Inj) 4 mg Q6H PRN IV NAUSEA AND/OR VOMITING Last administered on 09/02/18 22:03; Admin Dose 4 MG; Start 08/23/18 at 16:00 Famotidine (Pepcid) 20 mg BID PO Last administered on 09/02/18 22:05; Admin Dose 20 MG; Start 08/23/18 at 21:00 Phenol (Cepastat Lozenge) 1 lozenge PRN PRN MT SORE THROAT Last administered on 08/31/18 18:53; Admin Dose 1 LOZENGE; Start 08/23/18 at 16:00 Docusate Sodium (Colace) 100 mg BID PO Last administered on 09/01/18 20:05; Admin Dose 100 MG; Start 08/25/18 at 21:00 Atorvastatin Calcium (Lipitor) 10 mg HS PO Last administered on 09/02/18 22:06; Admin Dose 10 MG; Start 08/25/18 at 21:00 Folic Acid (Folic Acid) 1 mg DAILY PO Last administered on 09/02/18 11:07; Admin Dose 1 MG; Start 08/26/18 at 09:30 Amlodipine Besylate (Norvasc) 5 mg DAILY PO Last administered on 09/02/18 11:07; Admin Dose 5 MG; Start 08/26/18 at 09:30 Hydrochlorothiazide (Hydrochlorothiazide) 12.5 mg DAILY@0600 PO Last administered on 09/03/18 06:25; Admin Dose 12.5 MG; Start 08/28/18 at 06:00 Hydromorphone HCl (Dilaudid) 2 mg Q4H PRN PO SEVERE PAIN LEVEL 7-10 Last administered on 08/31/18 00:48; Admin Dose 2 MG; Start 08/28/18 at 17:30 Polyethylene Glycol (Miralax) 17 gm BID PO Last administered on 08/31/18 18:54; Admin Dose 17 GM; Start 08/30/18 at 22:00 Meloxicam (Mobic) 15 mg DAILY PO Last administered on 09/01/18 10:44; Admin Dose 15 MG; Start 09/01/18 at 11:30 Hydromorphone HCl (Dilaudid) 4 mg Q4H PRN PO SEVERE PAIN LEVEL 7-10 Last administered on 09/02/18 04:47; Admin Dose 4 MG; Start 09/01/18 at 16:30 Bisacodyl (Dulcolax) 5 mg DAILY PRN PO CONSTIPATION Last administered on 09/01/18 20:05; Admin Dose 5 MG; Start 09/01/18 at 17:00 Dextrose/Sodium Chloride 1,000 ml @ 75 mls/hr [id number] IV Last administered on 09/03/18at 00:43; Admin Dose 75 MLS/HR; Start 09/02/18 at 11:00 Fentanyl (Duragesic 12 Mcg/Hr Patch) 1 patch Q72H TRANSDERM ; Start 09/03/18 at 09:00 Fentanyl (Duragesic 25 Mcg/Hr Patch) 1 patch Q72H TRANSDERM ; Start 09/03/18 at 09:00 Assessment/Plan Assessment/Plan (Daily) Pt with h/o stage 2 lung ca s/p resection on right. Post-op course complicated by pain triggered by surgery. Pt feels over-medicated by opiates. Would like to reduce opiates in her system. -D/c Fent patch -Start meloxicam 15mg po q day -Dilaudid prn -Cont ambulation/ISS -DVT ppx -D/c planning shortly JUSTINA TRAVIS Sep 03, 2018 08:21
[2018-09-03] MEDS: ONDANSETRON 4 MG INJ IV PRN (08:51)
[2018-09-03] MEDS ORDERED: MELOXICAM 15 MG TAB PO SCH (09:00)
[2018-09-03] MEDS ORDERED: FENTAnyl PATCH 12 MCG/HR TRANSDERM SCH (09:00)
[2018-09-03] MEDS: MELOXICAM 15 MG TAB PO SCH (10:50)
[2018-09-03] MEDS: AMLODIPINE 5 MG TAB PO SCH (12:40)
[2018-09-03] MEDS: FOLIC ACID 1 MG TAB PO SCH (12:40)
[2018-09-03] MEDS: FAMOTIDINE 20 MG TAB PO SCH (12:40)
[2018-09-03] MEDS: DOCUSATE SODIUM 100 MG CAP PO SCH (12:40)
[2018-09-03] MEDS: POLYETHYLENE GLYCOL 17 GM PACKET PO SCH (12:40)
--- NOTE | 2018-09-03 16:47 | CONS ---
Consult Date/Type/Reason Admit Date/Time Aug 23, 2018 at 10:18 Initial Consult Date Type of Consultation: Pulm Date/Time of Note DATE: 09/03/18 TIME: 16:46 Subjective Patient being discharged at time of my visit. Objective Vitals Vital Signs Date Temp Pulse Resp B/P (MAP) Pulse Ox O2 O2 Flow FiO2 Time Delivery Rate 09/03/18 104 12:10 09/03/18 98.7 18 106/68 98 Room Air 11:58 (81) 09/02/18 2.0 11:08 Intake and Output 09/02/18 09/02/18 09/03/18 1515:00 23:00 07:00 IntakeIntake Total 1530 ml 700 ml BalanceBalance 1530 ml 700 ml Exam HEENT: Neck supple; no JVD; no LAD CVS: RRR, S1 and S2 CHEST: Clear ABD: Soft, NT, + BS EXT: No c/c/e Results/Medications Result Diagram: 08/30/18 1034 08/30/18 1034 Home Meds Reported Medications Pantoprazole* (Protonix*) 40 Mg Tablet.dr, 40 MG PO DAILY, TAB 08/23/18 Leflunomide* (Leflunomide*) 20 Mg Tablet, 20 MG PO DAILY, #30 TAB 08/23/18 Duloxetine Hcl* (Cymbalta*) 30 Mg Capsule.dr, 30 MG PO DAILY, CAP 08/23/18 Hydroxychloroquine Sulfate* (Plaquenil*) 200 Mg Tab, 200 MG PO DAILY, TAB 08/23/18 Atorvastatin Calcium (Atorvastatin Calcium) 10 Mg Tablet, 10 MG PO QHS, #30 TAB 08/23/18 Hydrochlorothiazide* (Hydrochlorothiazide*) 12.5 Mg Tablet, 12.5 MG PO DAILY, #30 TAB 08/23/18 Amlodipine Besylate* (Norvasc*) 5 Mg Tablet, 5 MG PO DAILY, TAB 08/23/18 Assessment/Plan Assessment/Plan (Daily) PMD to ensure timely outpatient follow-up with Oncology and Thoracic Surgery. JAYANT DEE MD Sep 03, 2018 16:47
--- NOTE | 2018-09-04 08:20 | DS ---
DATE OF ADMISSION: 08/23/2018 DATE OF DISCHARGE: 09/03/2018 FINAL DIAGNOSES: 1. Status post right video-assisted thoracoscopic surgery and right lower lobe lobectomy and thoraci c lymphadenectomy for adenocarcinoma of the lung, no evidence of metastatic disease. 2. Mild anemia, iron deficiency. 3. Hypertension. 4. Hyperlipidemia. 5. History of fibromyalgia. HOSPITAL COURSE: The patient is a 58-year-old lady well known to me from previous followup, who pres ents with right-sided chest pain and was evaluated in the emergency room, found to have right lower l obe mass of the lung and was subsequently referred to Dr. Meneses. Preop workup including a PET scan which did not show any evidence of metastatic disease. The patient underwent right VATS, right lower lobe lobectomy, and thoracic lymphadenectomy, cryoablation of the intercostal nerves on 08/23/2018. Postoperative course was uneventful. The patient was managed in the intensive care unit, was mainta ined on DVT prophylaxis with Lovenox. The patient was seen on oncology consultation, Dr. Cardona, wh o recommended further blood studies. The patient was found to be microcytic and iron studies were ob tained, and patient was found to have iron deficiency and was given intravenous iron. 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 Margins were all un involved. Bronchial and vascular margins were examined microscopically. Six lymph nodes were involv ed and they were all negative. Dr. Cardona recommended further chemotherapy in due course. The nestor ent continued to have moderate pain, right chest, and had been placed on Dilaudid and was switched to fentanyl patch. Dose was gradually deescalated. She still required parenteral narcotics and she re quested that we discontinue fentanyl, which was discontinued by Dr. Partida, covering for Dr. Radha brown, and she had been ambulating well and was discharged home in much improved condition to continue al l her other medications, namely: 1. Atorvastatin 10 mg daily. 2. Pepcid 20 mg b.i.d. 3. Amlodipine 5 mg daily. 4. Meloxicam 50 mg daily. 5. She was also given a prescription for Dilaudid 2 mg p.o. q.6 hours p.r.n. for severe pain. She will follow up with Dr. Lora as outpatient next week and Dr. Cardona as well. DISCHARGE CONDITION: Much improved. Dictated By: KRISHAN HYATT MD SR/NTS Conf#: [id number] DID#: [id number] CC: BRADFORD LORA MD;*EndCC*
== END 2018-09-03 14:40 | disposition home or self-care (01) | DRG 165 ==
LOC: REC 10:18 → ICU 16:10 → TEL 08-26 04:02
PROVIDERS: ADMIT Thoracic Surgery (Cardiothoracic Vascular Surgery); ATTEND Internal Medicine
PROC: 07B74ZX Excision of Thorax Lymphatic, Percutaneous Endoscopic Approach, Diagnostic (ICD-10-PCS; 2018-08-23)
PROC: 0BBF4ZZ Excision of Right Lower Lung Lobe, Percutaneous Endoscopic Approach (ICD-10-PCS; principal; 2018-08-23 13:00)
DX: C34.31 Malignant neoplasm of lower lobe, right bronchus or lung (principal); R33.9 Retention of urine, unspecified; I10 Essential (primary) hypertension; E78.5 Hyperlipidemia, unspecified; D64.9 Anemia, unspecified; K59.00 Constipation, unspecified; E63.8 Other specified nutritional deficiencies; M79.671 Pain in right foot; G89.18 Other acute postprocedural pain
CPT/HCPCS: 71045; 73630; 74018; 80048; 81003; 82378; 82728; 82962; 83540; 83735; 85025; 85610; 85730; 86900; 86901; 87081; 88305; 88307; 88313; 88331; 97116; 97161; 97530; J0690; J1100; J1170; J1200; J1650; J1885; J2250; J2405; J2710; J2765; J2916; J3010; J3420; J3480; J7042

== ENCOUNTER → 2018-09-16 | Outpatient (CLI) | payer BC ==
[~2018-09-16] MED LIST changes: -AMLO5TAB4; +AMLO5TAB4 PO; -AMOX1TAB10 PO; -ASPI-650; +ATOR10TA65 PO; +DULO30CA45 PO; +HYDR200T5 PO; +LEFL20TA18 PO; +PANT40TA3 PO
== END | disposition home or self-care (01) ==
LOC: LAB 13:37
PROVIDERS: ATTEND Internal Medicine
DX: D64.9 Anemia, unspecified (principal); E87.6 Hypokalemia
CPT/HCPCS: 80053; 85025; 87075

== ENCOUNTER → 2018-09-28 | Outpatient (CLI) | payer BC | END | disposition home or self-care (01) | LOC: RAD 14:03 | PROVIDERS: ATTEND Thoracic Surgery (Cardiothoracic Vascular Surgery) | DX: C34.31 Malignant neoplasm of lower lobe, right bronchus or lung (principal) | CPT/HCPCS: 71046 ==

== ENCOUNTER → 2018-11-07 | Outpatient (CLI) | payer BC ==
[~2018-11-07] MED LIST changes: +ONDA8TAB14 PO
== END | disposition home or self-care (01) ==
LOC: LAB 12:59
PROVIDERS: ATTEND Internal Medicine Hematology & Oncology
DX: C34.90 Malignant neoplasm of unspecified part of unspecified bronchus or lung (principal)
CPT/HCPCS: 80053; 82977; 83615; 84560; 85025

== ENCOUNTER 2018-11-13 04:31 | Emergency (ER) | payer BC ==
[~2018-11-13] VITALS: Ht 160 cm; Wt 70.9 kg
[2018-11-13 04:35] VITALS: Ht 160 cm; Wt 70.9 kg
[2018-11-13] MEDS ORDERED: SOD CHLORIDE 0.9% 1,000 ML IV STA (04:42)
[2018-11-13] MEDS ORDERED: ONDANSETRON 4 MG INJ IV STA (04:42)
[2018-11-13] MEDS ORDERED: DIPHENHYDRAMINE 50 MG INJ IV ONE (06:30)
[2018-11-13] MEDS ORDERED: METOCLOPRAMIDE 10 MG INJ IV ONE (06:30)
[2018-11-13] MEDS ORDERED: SOD CHLORIDE 0.9% 1,000 ML IV ONE (07:30)
[2018-11-13 08:36] VITALS: BP 139/95; PULSE 70; RESP 18
== END 2018-11-13 08:39 | disposition home or self-care (01) ==
LOC: E/R 04:31
DX: E86.0 Dehydration (principal); N18.9 Chronic kidney disease, unspecified; E87.6 Hypokalemia; D72.819 Decreased white blood cell count, unspecified; R53.0 Neoplastic (malignant) related fatigue; C34.90 Malignant neoplasm of unspecified part of unspecified bronchus or lung; Z87.891 Personal history of nicotine dependence
CPT/HCPCS: 36415; 71045; 80053; 81003; 83690; 85025; 93005; 96361; 96374; 96375; 99285; J2405; J2765; J7030

== ENCOUNTER → 2018-12-05 | Outpatient (CLI) | payer BC | END | disposition home or self-care (01) | LOC: LAB 13:15 | PROVIDERS: ATTEND Internal Medicine Hematology & Oncology | DX: C34.31 Malignant neoplasm of lower lobe, right bronchus or lung (principal) | CPT/HCPCS: 80053; 83615; 85025 ==